=== PATIENT | female | born 1935 | race Caucasian/White ===

== ENCOUNTER 2017-09-20 13:02 | Inpatient (IN) ==
--- NOTE | 2017-09-20 13:16 | Emergency Department Report ---
Psych HPI - General Chief Complaint: Psychiatric Symptoms <Shabnam Merinon Q - 09/22/17 14:50> Stated Complaint: Diana eval <Shabnam Merinon Q - 09/22/17 14:50> Time Seen by Provider: 09/20/17 13:06 <Shabnam Merinon Q - 09/22/17 14:50> Source: old records reviewed, other (senior living staff) <Jovita Bone N 11/06 13:16> Mode of arrival: ambulatory <Jovita Bone N 09/20/17 13:16> Limitations: no limitations <Jovita Bone N 09/20/17 13:16> - History of Present Illness HPI Narrative: She presents to ER today from senior living for medical clearance for admission to [facility]. She has been having increased aggressive behaviors and agitation. Had been evaluated in ER a month ago for admission and had a UTI at that time. They did treat with antibiotics and held off on admission at that time. Per staff, she did have a UA done this morning that was negative. <LizandroJovita N 09/20/17 13:20> MD complaint: other (agitation and aggression) <LatriciapageJovita N 09/20/17 13:16 > Onset (ago): week(s) <LatriciapageJovita N 09/20/17 13:16> Duration: constant <Jovita Bone N 09/20/17 13:16> Prior Hospitalization: No <LatriciapageJovita N 09/20/17 13:16> Relieving factors: none <LizandroJovita N 09/20/17 13:16> Exacerbating factors: none <LizandroJovita Drea 09/20/17 13:16> Associated psychiatric symptoms: none <LatriciapageJovita N 09/20/17 13:16> Associated symptoms: denies other symptoms <LatriciapageJovita 09/20/17 13:16> Treatments prior to arrival: none <LatriciapageJovita N 09/20/17 13:16> - Related Data Home Medications Medication Instructions Recorded Confirmed Donepezil HCl [Aricept] 10 mg PO DAILY #0 tab 04/04/16 09/20/17 Cyanocobalamin (Vitamin B-12) 1,000 mcg PO DAILY 08/22/17 09/20/17 [Vitamin B-12] Memantine [Namenda] 5 mg PO BID 08/22/17 09/20/17 Sertraline [Zoloft] 50 mg PO DAILY 08/22/17 09/20/17 Cholecalciferol (Vitamin D3) 1,000 unit PO DAILY 09/20/17 09/20/17 [Vitamin D3] Quetiapine [Seroquel] 100 mg PO BID 09/20/17 09/20/17 Previous Rx's Medication Instructions Recorded Acetaminophen [Tylenol Extra 500 mg PO Q4H PRN #60 tab 11/11/15 Strength] <Margarito Merino Q - 09/22/17 14:50> Allergies Allergy/AdvReac Type Severity Reaction Status Date / Time No Known Drug Allergies Allergy Unknown Verified 09/20/17 13:34 <Margarito Merino Q - 09/22/17 14:50> Review of Systems Constitutional: Denies: fever, chills, weakness <Jovita Bone N 09/20/17 13: 20> Respiratory: Denies: cough <Jovita Bone 09/20/17 13:20> Gastrointestinal: Denies: nausea, vomiting, diarrhea <Jovita Bone 13:20> Integumentary: Denies: rash <Jovita Bone 09/20/17 13:20> Neurological: Denies: weakness <Jovita Bone 09/20/17 13:20> [facility] Patient Stated Medical History Dementia Yes Hypertension Yes Diabetes Mellitus Type 2 Yes Hx Incontinence Yes Other Yes: abnormal vaginal bleeding Osteoarthritis Yes Depression Yes Clinic Medical History Major neurocognitive disorder due to Alzheimer's disease, probable, with behavioral disturbance (Acute Medical) with behavioral disturbance Acute psychosis (Inactive Medical) <Margarito Merino Q - 09/22/17 14:50> - Social History Smoking status: Never smoker <Jovita Bone - 09/20/17 13:16> Physical Exam - Limitations Limitations: no limitations <Jovita Bone - 09/20/17 13:20> - General General appearance: alert, in no apparent distress <Jovita Bone - 09/20/17 13:20> - Normal Exams: ENMT:: No facial trauma, nasal exudates, pharyngeal erythema, or exudates are noted <[facility]ovita [facility] 09/20/17 13:20> Neck:: Full range of motion, without adenopathy, JVD, bruits or thyromegaly < LatriciaJovita [facility] 09/20/17 13:20> Chest/Respirations:: Clear all devi, with good airflow, and symmetry bilaterally <Jovita [facility] 09/20/17 13:20> Cardiovascular:: Regular rate and rhythm, without murmur or gallop, Pulses 2+ all extremities, capillary refill, <2 seconds all extremities <Jovita Bone 09/20/17 13:20> Abdomen:: Bowel sounds positive, soft, non-tender, non-distended, no hepatosplenomegaly, masses or bruits noted <Jovita [facility] 09/20/17 13:20> Lymphatic:: No lymphadenopathy, or lymphedema noted <LatriciaJovita [facility] 09/20/17 13:20> Neurological:: Patient is alert, and oriented <Jovita Bone [facility] 09/20/17 13:20> Psychiatric:: Patient exhibits, appropriate attention, emotion and affect < Jovita Bone [facility] 09/20/17 13:20> Course Vital Signs Temperature 97.6 F 09/20/17 13:05 Pulse Rate 75 09/20/17 13:05 Respiratory Rate 18 09/20/17 13:05 Blood Pressure 130/63 09/20/17 13:05 Pulse Oximetry 97 09/20/17 13:05 Temperature 97.6 F 09/22/17 08:00 Pulse Rate 84 09/22/17 08:00 Respiratory Rate 18 09/22/17 08:00 Blood Pressure 146/67 H 09/22/17 08:00 Pulse Oximetry 96 09/22/17 08:00 <Margarito Merino Q - 09/22/17 14:50> Vital Signs Temperature 97.6 F 09/20/17 13:05 Pulse Rate 75 09/20/17 13:05 Respiratory Rate 18 09/20/17 13:05 Blood Pressure 130/63 09/20/17 13:05 Pulse Oximetry 97 09/20/17 13:05 Temperature 97.6 F 09/22/17 08:00 Pulse Rate 84 09/22/17 08:00 Respiratory Rate 18 09/22/17 08:00 Blood Pressure 146/67 H 09/22/17 08:00 Pulse Oximetry 96 09/22/17 08:00 <Jovita Bone N - 09/20/17 13:20> Psych - MDM Narrative Medical decision making narrative: Patient medically clear, however does have a questionable enlarging chest mass. Primary medical physician was contracted by nurse practitioner, I did discuss with Consuelo Haynes, nurse practitioner for hospitalist service so they were aware on consult <Margarito Merino Q - 09/22/17 14:50> Did call and discuss finding so chest xray with Dr Merino for outpatient follow up if not done during admission. <Jovita Bone N - 09/20/17 23:09> - Differential Diagnosis Likely: acute psychosis, acute anxiety <LatriciapageHuberta N - 09/20/17 13:20> - Lab Data Attestation: I reviewed the patient's lab results. <Jovita Bone N - 09/20/17 14:19> Result diagrams: 09/22/17 07:53 09/20/17 13:34 <Margarito Merino Q - 09/22/17 14:50> Lab Results 09/20/17 09/20/17 09/20/17 Range/Units 13:32 13:32 13:34 WBC 6.2 (4.5-11.0) T/MM3 RBC 4.25 (4.00-5.20) M/MM3 Hgb 11.9 L (12-16) GM/DL Hct 39.1 (36-46) % MCV 92.0 (80-100) UM3 MCH 28.0 (26-34) UUG MCHC 30.4 L (31-37) GM/DL RDW Std Deviation 48.2 (36.9-50.2) FL Plt Count 175 (130-400) T/MM3 MPV 11.1 (9.4-12.4) UM3 Immature Gran % (Auto) 0.5 (0.0-0.5) % Neut % (Auto) 71.6 H (33-66) % Lymph % (Auto) 15.4 L (23-45) % [place] % (Auto) 8.3 (0-9.0) % Eos % (Auto) 3.9 (0-4) % Baso % (Auto) 0.3 (0-2) % Neut # (Auto) 4.4 (1.8-7.7) T/MM3 Lymph # (Auto) 1.0 (1-4.8) T/MM3 [place] # (Auto) 0.5 (0-0.8) T/MM3 Eos # (Auto) 0.2 (0-0.5) T/MM3 Baso # (Auto) 0.0 (0-0.2) T/MM3 Abs Immat Gran (auto) 0.03 (0.00-0.03) T/MM3 Turbidity (0-20) Sodium (134-144) MEQ/L Potassium (3.6-5) MEQ/L Chloride (98-107) MEQ/L Carbon Dioxide (22-30) MEQ/L Anion Gap (5-15) MEQ/L BUN (7-17) MG/DL Creatinine (0.7-1.2) MG/DL GFR Calculation BUN/Creatinine Ratio (6-26) RATIO Glucose (65-110) MG/DL Hemoglobin A1c 5.9 L (6.1-7.9) % Calculated Osmolality (261-280) MOSM/KG Calcium (8.4-10.2) MG/DL Total Bilirubin (0.20-1.30) MG/DL Icterus Index (0-7) AST (14-36) U/L ALT (9-52) U/L Alkaline Phosphatase (38-126) U/L Total Protein (6.3-8.2) G/DL Albumin (3.5-5.0) G/DL Globulin (2.4-3.6) G/DL Albumin/Globulin Ratio (1.1-2.2) RATIO Carcinoembryonic Ag 17.30 H (0-3.0) UG/L TSH 4.09 (0.47-4.68) MIU/L Specimen Hemolysis (0-25) 09/20/17 Range/Units 13:34 WBC (4.5-11.0) T/MM3 RBC (4.00-5.20) M/MM3 Hgb (12-16) GM/DL Hct (36-46) % MCV (80-100) UM3 MCH (26-34) UUG MCHC (31-37) GM/DL RDW Std Deviation (36.9-50.2) FL Plt Count (130-400) T/MM3 MPV (9.4-12.4) UM3 Immature Gran % (Auto) (0.0-0.5) % Neut % (Auto) (33-66) % Lymph % (Auto) (23-45) % [place] % (Auto) (0-9.0) % Eos % (Auto) (0-4) % Baso % (Auto) (0-2) % Neut # (Auto) (1.8-7.7) T/MM3 Lymph # (Auto) (1-4.8) T/MM3 [place] # (Auto) (0-0.8) T/MM3 Eos # (Auto) (0-0.5) T/MM3 Baso # (Auto) (0-0.2) T/MM3 Abs Immat Gran (auto) (0.00-0.03) T/MM3 Turbidity < 20 (0-20) Sodium 143 (134-144) MEQ/L Potassium 3.7 (3.6-5) MEQ/L Chloride 107 (98-107) MEQ/L Carbon Dioxide 26 (22-30) MEQ/L Anion Gap 10 (5-15) MEQ/L BUN 24.0 H (7-17) MG/DL Creatinine 1.0 (0.7-1.2) MG/DL GFR Calculation 53 BUN/Creatinine Ratio 24 (6-26) RATIO Glucose 166 H (65-110) MG/DL Hemoglobin A1c (6.1-7.9) % Calculated Osmolality 283 H (261-280) MOSM/KG Calcium 8.4 (8.4-10.2) MG/DL Total Bilirubin 0.30 (0.20-1.30) MG/DL Icterus Index < 2 (0-7) AST 18 (14-36) U/L ALT 25 (9-52) U/L Alkaline Phosphatase 180 H (38-126) U/L Total Protein 7.5 (6.3-8.2) G/DL Albumin 3.8 (3.5-5.0) G/DL Globulin 3.7 H (2.4-3.6) G/DL Albumin/Globulin Ratio 1.0 L (1.1-2.2) RATIO Carcinoembryonic Ag (0-3.0) UG/L TSH (0.47-4.68) MIU/L Specimen Hemolysis < 15 (0-25) <Margarito Merino Q - 09/22/17 14:50> Lab Results 09/20/17 09/20/17 09/20/17 Range/Units 13:32 13:32 13:34 WBC 6.2 (4.5-11.0) T/MM3 RBC 4.25 (4.00-5.20) M/MM3 Hgb 11.9 L (12-16) GM/DL Hct 39.1 (36-46) % MCV 92.0 (80-100) UM3 MCH 28.0 (26-34) UUG MCHC 30.4 L (31-37) GM/DL RDW Std Deviation 48.2 (36.9-50.2) FL Plt Count 175 (130-400) T/MM3 MPV 11.1 (9.4-12.4) UM3 Immature Gran % (Auto) 0.5 (0.0-0.5) % Neut % (Auto) 71.6 H (33-66) % Lymph % (Auto) 15.4 L (23-45) % [place] % (Auto) 8.3 (0-9.0) % Eos % (Auto) 3.9 (0-4) % Baso % (Auto) 0.3 (0-2) % Neut # (Auto) 4.4 (1.8-7.7) T/MM3 Lymph # (Auto) 1.0 (1-4.8) T/MM3 [place] # (Auto) 0.5 (0-0.8) T/MM3 Eos # (Auto) 0.2 (0-0.5) T/MM3 Baso # (Auto) 0.0 (0-0.2) T/MM3 Abs Immat Gran (auto) 0.03 (0.00-0.03) T/MM3 Turbidity (0-20) Sodium (134-144) MEQ/L Potassium (3.6-5) MEQ/L Chloride (98-107) MEQ/L Carbon Dioxide (22-30) MEQ/L Anion Gap (5-15) MEQ/L BUN (7-17) MG/DL Creatinine (0.7-1.2) MG/DL GFR Calculation BUN/Creatinine Ratio (6-26) RATIO Glucose (65-110) MG/DL Hemoglobin A1c 5.9 L (6.1-7.9) % Calculated Osmolality (261-280) MOSM/KG Calcium (8.4-10.2) MG/DL Total Bilirubin (0.20-1.30) MG/DL Icterus Index (0-7) AST (14-36) U/L ALT (9-52) U/L Alkaline Phosphatase (38-126) U/L Total Protein (6.3-8.2) G/DL Albumin (3.5-5.0) G/DL Globulin (2.4-3.6) G/DL Albumin/Globulin Ratio (1.1-2.2) RATIO Carcinoembryonic Ag 17.30 H (0-3.0) UG/L TSH 4.09 (0.47-4.68) MIU/L Specimen Hemolysis (0-25) 09/20/17 Range/Units 13:34 WBC (4.5-11.0) T/MM3 RBC (4.00-5.20) M/MM3 Hgb (12-16) GM/DL Hct (36-46) % MCV (80-100) UM3 MCH (26-34) UUG MCHC (31-37) GM/DL RDW Std Deviation (36.9-50.2) FL Plt Count (130-400) T/MM3 MPV (9.4-12.4) UM3 Immature Gran % (Auto) (0.0-0.5) % Neut % (Auto) (33-66) % Lymph % (Auto) (23-45) % [place] % (Auto) (0-9.0) % Eos % (Auto) (0-4) % Baso % (Auto) (0-2) % Neut # (Auto) (1.8-7.7) T/MM3 Lymph # (Auto) (1-4.8) T/MM3 [place] # (Auto) (0-0.8) T/MM3 Eos # (Auto) (0-0.5) T/MM3 Baso # (Auto) (0-0.2) T/MM3 Abs Immat Gran (auto) (0.00-0.03) T/MM3 Turbidity < 20 (0-20) Sodium 143 (134-144) MEQ/L Potassium 3.7 (3.6-5) MEQ/L Chloride 107 (98-107) MEQ/L Carbon Dioxide 26 (22-30) MEQ/L Anion Gap 10 (5-15) MEQ/L BUN 24.0 H (7-17) MG/DL Creatinine 1.0 (0.7-1.2) MG/DL GFR Calculation 53 BUN/Creatinine Ratio 24 (6-26) RATIO Glucose 166 H (65-110) MG/DL Hemoglobin A1c (6.1-7.9) % Calculated Osmolality 283 H (261-280) MOSM/KG Calcium 8.4 (8.4-10.2) MG/DL Total Bilirubin 0.30 (0.20-1.30) MG/DL Icterus Index < 2 (0-7) AST 18 (14-36) U/L ALT 25 (9-52) U/L Alkaline Phosphatase 180 H (38-126) U/L Total Protein 7.5 (6.3-8.2) G/DL Albumin 3.8 (3.5-5.0) G/DL Globulin 3.7 H (2.4-3.6) G/DL Albumin/Globulin Ratio 1.0 L (1.1-2.2) RATIO Carcinoembryonic Ag (0-3.0) UG/L TSH (0.47-4.68) MIU/L Specimen Hemolysis < 15 (0-25) <Jovita Bone - 09/20/17 13:20> - Radiology Data Attestation: I reviewed the patient's radiology results. <Jovita Bone - 11/06 14:19> Date of Exam: 09/20/17 Ordering Provider: Jovita Bone APRN Type of Exam(s): XR chest 1V Reason for Exam(s): confusion Indication: confusion PROCEDURE: XR chest 1V: Encounter: Initial Comparison: November 09, 2015 Findings: Increasing size of a left upper lobe mass, possibly measuring up to 5 cm in diameter. The previously noted right upper lobe pulmonary nodule is not well seen on today's exam. No pleural effusion or pneumothorax. Heart size and mediastinal contours are stable. Pulmonary vascularity is unremarkable. Impression: Enlarging left upper lobe lung mass suspicious for carcinoma. Chest CT is recommended if this has not been previously performed. . <Jovita [facility] 09/20/17 14:19> Disposition Clinical Impression: DEMENTIA WITH BEHAVIORS <Margarito Merino 09/22/17 14:50> Disposition: 64 To [facility] [place] <Margarito Merino 09/22/17 14:50> Condition: Stable <Margarito Merino [facility] 09/22/17 14:50> Instructions: <Margarito Merino [facility] 09/22/17 14:50> Prescriptions: No Action Donepezil HCl [Aricept] 10 mg PO DAILY #0 tab Cyanocobalamin (Vitamin B-12) [Vitamin B-12] 1,000 mcg PO DAILY Sertraline [Zoloft] 50 mg PO DAILY Cholecalciferol (Vitamin D3) [Vitamin D3] 1,000 unit PO DAILY Quetiapine [Seroquel] 100 mg PO BID Acetaminophen [Tylenol Extra Strength] 500 mg PO Q4H PRN #60 tab PRN Reason: PAIN Memantine [Namenda] 5 mg PO BID <Margarito Merino - 09/22/17 14:50> Referrals: Marci Merino MD [Family Provider] - <Margarito Merino [facility] 09/22/17 14 :50> Forms: <Margarito Merino [facility] 09/22/17 14:50> Time of Disposition: 14:30 <Jovita Bone 09/20/17 23:09> - Seen By: midlevel <Jovita Bone [facility] 09/20/17 23:09>
--- NOTE | 2017-09-20 14:06 | XRay Report ---
Indication: confusion PROCEDURE: XR chest 1V: Encounter: Initial Comparison: November 09, 2015 Findings: Increasing size of a left upper lobe mass, possibly measuring up to 5 cm in diameter. The previously noted right upper lobe pulmonary nodule is not well seen on today's exam. No pleural effusion or pneumothorax. Heart size and mediastinal contours are stable. Pulmonary vascularity is unremarkable. Impression: Enlarging left upper lobe lung mass suspicious for carcinoma. Chest CT is recommended if this has not been previously performed. .
[2017-09-20] MEDS ORDERED: HALOPERIDOL 5 MG/ML INJECTION IM PRN (14:38)
[2017-09-20] MEDS ORDERED: HALOPERIDOL 0.5 MG TABLET PO PRN (14:38)
[2017-09-20] MEDS ORDERED: LORazepam 0.5 MG TABLET PO PRN (14:38)
[2017-09-20 16:25] VITALS: BMI 31.1
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
[2017-09-20] MEDS: MEMANTINE 5 MG TABLET PO SCH (20:50)
[2017-09-20] MEDS: QUETIAPINE 50 MG TABLET PO SCH (20:50)
[2017-09-20] MEDS ORDERED: QUETIAPINE 100 MG TABLET PO SCH (21:00)
[2017-09-21] MEDS: CYANOCOBALAMIN (B-12) 500mcg TABLET PO SCH (09:19)
[2017-09-21] MEDS: SERTRALINE 50 MG TABLET PO SCH (09:19)
[2017-09-21] MEDS: MEMANTINE 5 MG TABLET PO SCH ×2 (09:19→20:11)
[2017-09-21] MEDS: QUETIAPINE 50 MG TABLET PO SCH ×2 (09:23→20:11)
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
[2017-09-21] MEDS ORDERED: ACETAMINOPHEN 500 MG TABLET PO PRN (12:05)
[2017-09-21] MEDS: SENNA + DOCUSATE TABLET PO SCH (20:11)
[2017-09-21] MEDS: DONEPEZIL 10 MG TABLET PO SCH (20:11)
[2017-09-22] MEDS: CYANOCOBALAMIN (B-12) 500mcg TABLET PO SCH ×2 (09:57→13:28)
[2017-09-22] MEDS: QUETIAPINE 50 MG TABLET PO SCH ×3 (09:58→20:20)
[2017-09-22] MEDS: SERTRALINE 50 MG TABLET PO SCH ×2 (09:58→13:29)
[2017-09-22] MEDS: MEMANTINE 5 MG TABLET PO SCH ×3 (09:58→20:20)
[2017-09-22] MEDS: SENNA + DOCUSATE TABLET PO SCH ×3 (09:58→20:20)
[2017-09-22] MEDS ORDERED: CEFTRIAXONE 1 G INJECTION IM ONE (10:12)
[2017-09-22] MEDS ORDERED: LIDOCAINE 1% (10mg/ml) 2mL INJ PF SDV ID ONE (10:32)
--- NOTE | 2017-09-22 10:47 | CT Scan Report ---
Indication: Confusion, possible malignancy PROCEDURE: CT head/brain wo con: Encounter: Initial Comparison: November 09, 2015 Technique: Axial CT images through the head were performed without contrast. Iterative Reconstruction dose reducing technique was utilized. FINDINGS: Generalized atrophy. The ventricles are of normal size, shape, and contour for the patient's age. Chronic appearing left caudate area of lacunar infarct. There are scattered areas of low attenuation in the white matter which most likely represent changes from chronic microvascular ischemia. The brainstem, cerebellum, and cerebral hemispheres otherwise have a normal morphology and CT attenuation. There is no evidence of midline displacement. No hemorrhage, signs of acute territorial stroke, mass effect, mass lesions, or edema is evident. The visualized portions of the skull base, midface, and calvarium demonstrate no acute findings. Hyperostosis frontalis interna. The paranasal sinuses are well aerated and free of significant disease. The tympanic and mastoid cavities appear normal. IMPRESSION: No acute intracranial abnormality or hemorrhage. .
--- NOTE | 2017-09-22 10:52 | CT Scan Report ---
Indication: Lung mass PROCEDURE: CT chest wo con: Encounter: Initial Comparison: Chest x-ray dated September 20, 2017 Technique: Axial CT images were performed through the chest without intravenous contrast. Coronal and sagittal two-dimensional reformats. Automated Exposure Control and Iterative Reconstruction dose reducing techniques were utilized. Findings: Spiculated 5.6 cm left upper lobe lung mass on axial image #14. Mild atelectasis in the lower lobes. No additional pulmonary nodules or masses. No pleural effusion or pneumothorax. The central airways are patent. No axillary adenopathy. No mediastinal adenopathy heart size is normal. No pericardial effusion. The upper abdomen shows no acute findings. Small hiatal hernia with a fat-containing posterior mediastinal defect as well. Bone windows show degenerative change and scoliosis in the spine without obvious lytic or blastic bony lesion. 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 Impression: Large irregular left upper lobe mass which remains a primary lung malignancy until proven otherwise. No definite evidence of metastatic disease in the chest. Due to its positioning a bronchoscopic biopsy would probably be the most advantageous route for obtaining a tissue diagnosis. .
--- NOTE | 2017-09-22 11:08 | Neuropsych Progress Note ---
[facility] Subjective Date: 09/22/17 - Sujective/Severity of Illness Medications: Acetaminophen (Tylenol) 500 mg PO Q5H PRN PRN Reason: Discomfort Cephalexin HCl (Keflex) 500 mg PO Q12HR [facility] Last Admin: 09/22/17 10:07 Dose: 500 mg Cholecalciferol (Vit. D-3) 1,000 unit PO DAILY [facility] Last Admin: 09/22/17 09:58 Dose: 1,000 unit Cyanocobalamin (Vit. B-12) 1,000 mcg PO DAILY [facility] Last Admin: 09/22/17 09:57 Dose: 1,000 mcg Donepezil HCl (Aricept) 10 mg PO HS [facility] Last Admin: 09/21/17 20:11 Dose: 10 mg Haloperidol (Haldol) 0.5 mg PO Q6H PRN PRN Reason: Extreme agitation Haloperidol Lactate (Haldol) 0.5 mg IM Q6H PRN PRN Reason: Extreme agitation Last Admin: 09/22/17 10:21 Dose: 0.5 mg Lorazepam (Ativan Inj) 0.5 mg IM Q6H PRN PRN Reason: Extreme agitation Lorazepam (Ativan) 0.5 mg PO Q6H PRN PRN Reason: Extreme agitation Last Admin: 09/21/17 09:21 Dose: 0.5 mg Magnesium Hydroxide (Mom) 30 ml PO DAILY PRN PRN Reason: Constipation /Stool softening Memantine (Namenda) 5 mg PO BID [facility] Last Admin: 09/22/17 09:58 Dose: 5 mg Quetiapine Fumarate (Seroquel) 50 mg PO BID [facility] Last Admin: 09/22/17 09:58 Dose: 50 mg Senna/Docusate Sodium (Senna Plus Tablet) 1 tab PO BID [facility] Last Admin: 09/22/17 09:58 Dose: 1 tab Sertraline HCl (Zoloft) 50 mg PO DAILY [facility] Last Admin: 09/22/17 09:58 Dose: 50 mg Subjective: Pt seen and chart examined. Nursing reports pt has been irritable and paranoid and agitated with staff. On face to face the pt is irritable. She states she does not want to take her meds because "I'm not sick". She states we are trying to take her money. Denies pain Start Time: 10:45 Stop Time: 11:00 Mental Status Exam Vitals: Last Vital Signs Temp 97.6 F 09/22/17 08:00 Pulse 84 09/22/17 08:00 Resp 18 09/22/17 08:00 BP 146/67 H 09/22/17 08:00 Pulse Ox 96 09/22/17 08:00 Height: 1.5 m Weight: 70.1 kg - Mental Status Exam Muscle Strength/Tone: Weak Dressing: Casual Grooming: Fair Attitude: Guarded Motor Activity: Retardation Eye Contact: Fair Speech: Slowed Volume: Soft Rhythm: Mumbled Orientation: Disoriented to time, Disoriented to place, Disoriented to situation , Oriented to person Mood: Neutral Rate of Thoughts: Delayed Thought Organization: [place] Associations: Loose-associations Abstract Reasoning: Poor abstract reasoning Thought Content: Normal Perception/Psychotic: Hx psychosis, not current Language: Naming Impaired Fund of Knowledge: Poor fund of knowledge Memory: Poor-immediate, Poor-recent Suicidal Ideation: Denies Homicidal Ideation: Denies Insight: Poor Judgement: Poor Impulse Control: Poor - Laboratory Result Diagrams: 09/22/17 07:53 09/20/17 13:34 Laboratory Results - last 24 hr 09/22/17 09/22/17 06:43 07:53 WBC 6.1 RBC 4.36 Hgb 12.0 Hct 39.9 MCV 91.5 MCH 27.5 MCHC 30.1 L RDW Std Deviation 48.4 Plt Count 200 MPV 11.5 Immature Gran % (Auto) 0.5 Neut % (Auto) 70.4 H Lymph % (Auto) 15.5 L [place] % (Auto) 7.9 Eos % (Auto) 5.4 H Baso % (Auto) 0.3 Neut # (Auto) 4.3 Lymph # (Auto) 1.0 [place] # (Auto) 0.5 Eos # (Auto) 0.3 Baso # (Auto) 0.0 Abs Immat Gran (auto) 0.03 Glucometer 88 Assessment and Plan (1) Major neurocognitive disorder due to Alzheimer's disease, probable, with behavioral disturbance Problem details: with behavioral disturbance Current visit: Yes Status: Acute Hospital Course Summary Disclaimer: The visit summary below is not to be considered part of the above Progress Note. Hospital Course: 09/21/17 10:23 Some paranoia but not distressing to the pt. Continue current care 09/21/17 12:03 09/21/17 Admit to [facility] under the care of the psychiatry team. Continue safe/supportive environment. Possible recurrent UTI- await cx. (may need to R/O fistula given hx of intra- abdominal infection) Lung mass needs to be evaluated- order CT w/o contrast for now given age. CT head as well given concern for malignancy. (Don't think she would cooperate for MRI) Add laxatives due to constipation. Monitor HTN and DM2- daily accu checks. No home meds are recorded for those problems. Consult wound clinic to help with chronic wound management. D/W RN today. Full code-may need to discuss code status depending on findings. 09/21/17 12:04 Assessment: Dementia Behavioral changes with hallucinations Lung mass, concern for malignancy HTN DM2 Constipation H/O Abnormal vaginal bleeding Recurrent UTI Colostomy Chronic vascular insufficiency wounds. 09/22/17 11:07 Irritable and agitated today. Continue current care
--- NOTE | 2017-09-22 15:29 | Progress Note ---
- Date 09/22/17 Subjective: Sitting up in bed, having a conversation. There is no one visible in the room but she tells me she is meeting with several important people and would prefer I come back at a time that is more convenient. She denies any complaints currently. No further ROS obtainable at this time. Objective Vital signs: Temperature 97.6 F 09/22/17 08:00 Pulse Rate 84 09/22/17 08:00 Respiratory Rate 18 09/22/17 08:00 Blood Pressure 146/67 H 09/22/17 08:00 Pulse Oximetry 96 09/22/17 08:00 Height/Weight/BMI: Height 1.5 m Weight 70.1 kg Body Mass Index 31.1 - Constitutional Present: no acute distress, well nourished, well developed, disheveled - Routine HEENT Exam Head: Present: normocephalic, atraumatic Eye: Present: EOMI, PERRL ENT: Present: mucous membranes moist, oropharynx clear - Routine Respiratory Exam Absent: accessory muscle use Comments: nonlabored breathing, symmetrical chest rise - Routine Cardiovascular Exam Present: RRR. Absent: murmur - Routine Abdominal Exam Present: soft, non distended, non tender - Routine Extremities Exam Present: pulses intact, normal capillary refill. Absent: edema - Routine Skin Exam Present: dry, warm. Absent: rash - Routine Neurological Exam Present: alert, altered mental status - Routine Psychiatric Exam Present: auditory hallucinations, visual hallucinations, anxious Results - Labs CBC & Chem 7: 09/22/17 07:53 09/20/17 13:34 Labs: Date of Exam: 09/21/17 Ordering Provider: Radha Smith APRN Type of Exam(s): CT chest wo con Reason for Exam(s): Lung mass Indication: Lung mass PROCEDURE: CT chest wo con: Encounter: Initial Comparison: Chest x-ray dated September 20, 2017 Technique: Axial CT images were performed through the chest without intravenous contrast. Coronal and sagittal two-dimensional reformats. Automated Exposure Control and Iterative Reconstruction dose reducing techniques were utilized. Findings: Spiculated 5.6 cm left upper lobe lung mass on axial image #14. Mild atelectasis in the lower lobes. No additional pulmonary nodules or masses. No pleural effusion or pneumothorax. The central airways are patent. No axillary adenopathy. No mediastinal adenopathy heart size is normal. No pericardial effusion. The upper abdomen shows no acute findings. Small hiatal hernia with a fat-containing posterior mediastinal defect as well. Bone windows show degenerative change and scoliosis in the spine without obvious lytic or blastic bony lesion. 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 Impression: Large irregular left upper lobe mass which remains a primary lung malignancy until proven otherwise. No definite evidence of metastatic disease in the chest. Due to its positioning a bronchoscopic biopsy would probably be the most advantageous route for obtaining a tissue diagnosis. Date of Exam: 09/21/17 Ordering Provider: Radha Smith APRN Type of Exam(s): CT head/brain wo con Reason for Exam(s): Confusion, possible malignancy Indication: Confusion, possible malignancy PROCEDURE: CT head/brain wo con: Encounter: Initial Comparison: November 09, 2015 Technique: Axial CT images through the head were performed without contrast. Iterative Reconstruction dose reducing technique was utilized. FINDINGS: Generalized atrophy. The ventricles are of normal size, shape, and contour for the patient's age. Chronic appearing left caudate area of lacunar infarct. There are scattered areas of low attenuation in the white matter which most likely represent changes from chronic microvascular ischemia. The brainstem, cerebellum, and cerebral hemispheres otherwise have a normal morphology and CT attenuation. There is no evidence of midline displacement. No hemorrhage, signs of acute territorial stroke, mass effect, mass lesions, or edema is evident. The visualized portions of the skull base, midface, and calvarium demonstrate no acute findings. Hyperostosis frontalis interna. The paranasal sinuses are well aerated and free of significant disease. The tympanic and mastoid cavities appear normal. IMPRESSION: No acute intracranial abnormality or hemorrhage. Microbiology Results: Microbiology 09/21/17 09:23 Urine, Voided (Cc/notcc) Urine Culture - Preliminary No Growth After 1 Day - Imaging and Cardiology CT scan - chest Status: image reviewed by me Assessment and Plan (1) Major neurocognitive disorder due to Alzheimer's disease, probable, with behavioral disturbance Problem details: with behavioral disturbance Current visit: Yes Status: Acute Assessment and Plan: Assessment: Dementia Behavioral changes with hallucinations (visual, auditory) Lung mass, concern for malignancy with CT chest demonstrating > 5 cm spiculated mass --> per radiology, bronchoscopy likely the most appropriate avenue for biopsy --> Discussed with her niece and DPOA today (May Powers [phone]) who agrees that she would want further investigation HTN DM2 Constipation H/O Abnormal vaginal bleeding Recurrent UTI Colostomy Chronic vascular insufficiency wounds Complicated UTI, urine culture pending with NGTD from 09/21 Plan: Consult pulmonology for further evaluation and possible bronchoscopy/biopsy this week to evaluate lung mass Start keflex 500 mg po BID empirically pending urine culture results given history of recurrent UTI, UA nitrite + and bacteriuria Continue safe/supportive environment Continue laxatives for constipation Monitor HTN and DM2- daily accu checks. No home meds are recorded for those problems and stable currently Consult wound clinic to help with chronic wound management (eval pending) Discussed with DPOA May Powers (niece), would like to proceed with pulm evaluation and biopsy if able. Discussed with RN at bedside. Continue full code status and supportive care. Hospital Course Summary Disclaimer: The visit summary below is not to be considered part of the above Progress Note. Hospital Course: 09/21/17 10:23 Some paranoia but not distressing to the pt. Continue current care 09/21/17 12:03 09/21/17 Admit to [facility] under the care of the psychiatry team. Continue safe/supportive environment. Possible recurrent UTI- await cx. (may need to R/O fistula given hx of intra- abdominal infection) Lung mass needs to be evaluated- order CT w/o contrast for now given age. CT head as well given concern for malignancy. (Don't think she would cooperate for MRI) Add laxatives due to constipation. Monitor HTN and DM2- daily accu checks. No home meds are recorded for those problems. Consult wound clinic to help with chronic wound management. D/W RN today. Full code-may need to discuss code status depending on findings. 09/21/17 12:04 Assessment: Dementia Behavioral changes with hallucinations Lung mass, concern for malignancy HTN DM2 Constipation H/O Abnormal vaginal bleeding Recurrent UTI Colostomy Chronic vascular insufficiency wounds. 09/22/17 11:07 Psych Irritable and agitated today. Continue current care 09/22/17 15:41 [place] Consult pulmonology for further evaluation and possible bronchoscopy/biopsy this week to evaluate lung mass Start keflex 500 mg po BID empirically pending urine culture results given history of recurrent UTI, UA nitrite + and bacteriuria Continue safe/supportive environment Continue laxatives for constipation Monitor HTN and DM2- daily accu checks. No home meds are recorded for those problems and stable currently Consult wound clinic to help with chronic wound management (eval pending)
[2017-09-22] MEDS: DONEPEZIL 10 MG TABLET PO SCH (20:19)
--- NOTE | 2017-09-23 09:57 | Pulmonology Consult Note ---
<Mary Hoffmann - Last Filed: 09/23/17 09:47> History of Present Illness Consult date: 09/23/17 Reason for consult: lung mass (ZAN) History of present illness: Ms. Kong, who goes by "Carina" is an 82 year old female who was brought in from her intermediate after having increased confusion and behavioral changes. She does have a PMH of dementia, and is admitted under psych care. She is currently only orientated to self, and has been having auditory and visual hallucinations since admit, which increases with personal cares per nursing report. Nursing has not noticed any cough, SOA, or respiratory distress from patient since admit. Upon admit she was found to have a reoccurring UTI. A CXR on 09/20/17 noted a mass to the left upper lobe. A CT of the chest found an irregular 5.6cm mass in the left upper lobe. CT of the head was negative. On previous review of CXR, she had bilateral upper lobe nodules in October 2015 per report. Unsure if further follow up was completed. Primary spoke with patients niece, May Powers who is her medical DPOA who wishes to have the mass biopsied. Review of Systems ROS unobtainable: due to mental status PFS Patient Stated Medical History Dementia Yes Hypertension Yes Diabetes Mellitus Type 2 Yes: diet controlled Hx Incontinence Yes Other Yes: abnormal vaginal bleeding Osteoarthritis Yes Depression Yes Clinic Medical History Major neurocognitive disorder due to Alzheimer's disease, probable, with behavioral disturbance (Acute Medical) with behavioral disturbance Acute psychosis (Inactive Medical) Surgical History: Bowel resection due to intra-abdominal infection. Colostomy - Social History Smoking status: Never smoker Housing: intermediate Current occupational status: retired Does patient use chewing tobacco?: No Current residence: Shelter Medications Home Medications Medication Instructions Recorded Confirmed Type Donepezil HCl [Aricept] 10 mg PO DAILY #0 tab 04/04/16 09/20/17 History Cyanocobalamin (Vitamin B-12) 1,000 mcg PO DAILY 08/22/17 09/20/17 History [Vitamin B-12] Memantine [Namenda] 5 mg PO BID 08/22/17 09/20/17 History Sertraline [Zoloft] 50 mg PO DAILY 08/22/17 09/20/17 History Cholecalciferol (Vitamin D3) 1,000 unit PO DAILY 09/20/17 09/20/17 History [Vitamin D3] Quetiapine [Seroquel] 100 mg PO BID 09/20/17 09/20/17 History Allergies Allergy/AdvReac Type Severity Reaction Status Date / Time No Known Drug Allergies Allergy Unknown Verified 09/20/17 13:34 Exam Vital signs: Temperature 97.6 F 09/22/17 20:09 Pulse Rate 79 09/22/17 20:09 Respiratory Rate 20 09/22/17 20:09 Blood Pressure 123/62 09/22/17 20:09 Pulse Oximetry 95 09/22/17 20:09 - Constitutional no acute distress, well nourished, well developed, cooperative - Routine HEENT Exam Head: Present: normocephalic, atraumatic Eye: Present: EOMI ENT: Present: mucous membranes dry - Routine Neck Exam Present: supple, full ROM, trachea midline - Routine Respiratory Exam Present: CTA bilaterally - Routine Cardiovascular Exam Present: RRR, S1, S2, no murmur - Routine Abdominal Exam Present: normoactive bowel sounds, non distended, non tender Comments: colostomy - Routine Extremities Exam Present: no edema, non tender, normal capillary refill - Routine Skin Exam Present: dry, warm, wounds Comments: bilateral feet - Routine Neurological Exam Present: alert, CN II-XII intact, altered mental status, normal tone - Routine Psychiatric Exam Present: auditory hallucinations, visual hallucinations, cooperative, paranoid Results - Laboratory Findings CBC and BMP: 09/22/17 07:53 09/20/17 13:34 Abnormal lab findings: Abnormal Labs 09/21/17 09/22/17 09:23 07:53 MCHC 30.1 L Neut % (Auto) 70.4 H Lymph % (Auto) 15.5 L Eos % (Auto) 5.4 H Ur Specific [place] 1.010 L Urine Nitrate Positive A Ur Leukocyte Esterase 2+ A Urine Bacteria 4+ H - Diagnostic Findings Chest x-ray: image reviewed CT scan - chest: image reviewed (as per HPI) Assessment and Plan - Assessment and Plan ZAN lung mass, 5.6cm Dementia-per psych management UTI- on Keflex per primary Plan: Patient with ZAN 5.6cm mass. Likely cancerous, would need a bronch with bx to confirm. My concern is she is not ambulatory and is WC bound. She has severe dementia. I question how much we are wanting to do to this patient for treatment or dx d/t her co-morbidities. Tried to call May YLLE without an answer. Will try to contact this afternoon. Continues with both visual and auditory hallucinations related to her . Continue psych meds per psych. Currently on Keflex for UTI, afebrile, WBC normal, continue to follow per primary. - Time Spent With Patient Total time spent is greater than 50% in coordination of care (as documented) at patient's floor/unit and/or counseling patient: less than 15 minutes <Claudy Forrester - Last Filed: 09/24/17 13:04> [facility] Patient Stated Medical History Dementia Yes Hypertension Yes Diabetes Mellitus Type 2 Yes: diet controlled Hx Incontinence Yes Other Yes: abnormal vaginal bleeding Osteoarthritis Yes Depression Yes Clinic Medical History Major neurocognitive disorder due to Alzheimer's disease, probable, with behavioral disturbance (Acute Medical) with behavioral disturbance May have vascular component as well. Lung mass (Acute Medical) Hypertension (Acute Medical) Type 2 diabetes mellitus (Acute Medical) UTI (urinary tract infection) (Acute Medical) Acute psychosis (Inactive Medical) Exam Vital signs: Temperature 98.3 F 09/23/17 22:07 Pulse Rate 79 09/23/17 22:07 Respiratory Rate 20 09/23/17 22:07 Blood Pressure 122/67 09/23/17 22:07 Pulse Oximetry 96 09/23/17 22:07 Results - Laboratory Findings CBC and BMP: 09/22/17 07:53 09/20/17 13:34 Abnormal lab findings: Abnormal Labs 09/21/17 09/22/17 09/24/17 09:23 07:53 06:57 MCHC 30.1 L Neut % (Auto) 70.4 H Lymph % (Auto) 15.5 L Eos % (Auto) 5.4 H Triglycerides 178 H VLDL Cholesterol 35.6 H HDL Cholesterol 36 L Cholesterol/HDL Ratio 4.3 H Ur Specific [place] 1.010 L Urine Nitrate Positive A Ur Leukocyte Esterase 2+ A Urine Bacteria 4+ H Assessment and Plan (1) Abnormal finding on lung imaging Status: Acute Current Visit: Yes (2) Lung mass Status: Acute Assessment and plan: Lung Mass, ZAN. This extends proximally into the ZAN bronchus and I believe it is amenable to bronchoscopic sampling. I would suggest fiberoptic bronchoscopy under anesthesia to rule out bronchogenic carcinoma, which seems most likely at this point. Current Visit: Yes - Time Spent With Patient Total time spent is greater than 50% in coordination of care (as documented) at patient's floor/unit and/or counseling patient:
[2017-09-23] MEDS: MEMANTINE 5 MG TABLET PO SCH ×2 (10:59→20:48)
[2017-09-23] MEDS: SENNA + DOCUSATE TABLET PO SCH ×3 (10:59→21:00)
[2017-09-23] MEDS: SERTRALINE 50 MG TABLET PO SCH (10:59)
[2017-09-23] MEDS: CYANOCOBALAMIN (B-12) 500mcg TABLET PO SCH (10:59)
[2017-09-23] MEDS: QUETIAPINE 50 MG TABLET PO SCH ×3 (11:00→20:51)
--- NOTE | 2017-09-23 11:46 | Progress Note ---
<Carol Mobley V - Last Filed: 09/23/17 11:41> - Date 09/23/17 Subjective: Mrs Kong is seen this morning. She is acutely talking with her (who is not present) and arguing with his regarding his new marriage. She reports that she is angry at him for leaving her for another woman. On examination she denies having any pain or feeling short of breath. Denies abdominal pain or nausea. Objective Vital signs: Temperature 98.5 F 09/23/17 08:00 Pulse Rate 104 H 09/23/17 08:00 Respiratory Rate 18 09/23/17 08:00 Blood Pressure 120/65 09/23/17 08:00 Pulse Oximetry 96 09/23/17 08:00 Height/Weight/BMI: Height 1.5 m Weight 70.1 kg Body Mass Index 31.1 - Constitutional Present: no acute distress, well nourished, well developed - Routine HEENT Exam Eye: Present: EOMI ENT: Present: mucous membranes moist, dentition normal - Routine Respiratory Exam Present: CTA bilaterally. Absent: wheezes - Routine Cardiovascular Exam Present: RRR, S1, S2. Absent: murmur - Routine Abdominal Exam Present: soft, normoactive bowel sounds, non distended. Absent: tenderness - Routine Extremities Exam Present: no edema - Routine Skin Exam Present: intact, dry, warm - Routine Neurological Exam Present: alert, CN II-XII intact, moving all extremities - Routine Lymphatic Exam Lymphatic: Absent: adenopathy - Routine Psychiatric Exam Present: auditory hallucinations, visual hallucinations, cooperative Results - Labs CBC & Chem 7: 09/22/17 07:53 09/20/17 13:34 Microbiology Results: Microbiology 09/21/17 09:23 Urine, Voided (Cc/notcc) Urine Culture - Preliminary No Growth After 1 Day Assessment and Plan (1) Major neurocognitive disorder due to Alzheimer's disease, probable, with behavioral disturbance Problem details: with behavioral disturbance Current visit: Yes Status: Acute Assessment and Plan: Assessment: Dementia Behavioral changes with hallucinations (visual, auditory) Lung mass, concern for malignancy with CT chest demonstrating > 5 cm spiculated mass --> per radiology, bronchoscopy likely the most appropriate avenue for biopsy --> Discussed with her niece and DPOA today (May Powers, ) who agrees that she would want further investigation HTN DM2 Constipation H/O Abnormal vaginal bleeding Recurrent UTI Colostomy Chronic vascular insufficiency wounds Complicated UTI, urine culture pending with NGTD from 09/21 Plan: Consulted pulmonology for further evaluation of probable malignant lung mass. Recommended by CM to complete treatment course of [facility]. Then will plan for outpatient workup and Bronchoscopy with Dr Forrester. Could consider obtaining CT brain with contrast to rule out mets. Will discuss with DPOA. Continues on Keflex for Pyuria- Culture revels Coag negative Staph. Awaiting sensitivity Monitor HTN and DM2- Diet control. Overall stable Attempted to nick DPOA May Powers (niece), to discuss plan of care. Will call later in the day Hospital Course Summary Disclaimer: The visit summary below is not to be considered part of the above Progress Note. Hospital Course: 09/21/17 10:23 Some paranoia but not distressing to the pt. Continue current care 09/21/17 12:03 09/21/17 Admit to [facility] under the care of the psychiatry team. Continue safe/supportive environment. Possible recurrent UTI- await cx. (may need to R/O fistula given hx of intra- abdominal infection) Lung mass needs to be evaluated- order CT w/o contrast for now given age. CT head as well given concern for malignancy. (Don't think she would cooperate for MRI) Add laxatives due to constipation. Monitor HTN and DM2- daily accu checks. No home meds are recorded for those problems. Consult wound clinic to help with chronic wound management. D/W RN today. Full code-may need to discuss code status depending on findings. 09/21/17 12:04 Assessment: Dementia Behavioral changes with hallucinations Lung mass, concern for malignancy HTN DM2 Constipation H/O Abnormal vaginal bleeding Recurrent UTI Colostomy Chronic vascular insufficiency wounds. 09/22/17 11:07 Psych Irritable and agitated today. Continue current care 09/22/17 15:41 [place] Consult pulmonology for further evaluation and possible bronchoscopy/biopsy this week to evaluate lung mass Start keflex 500 mg po BID empirically pending urine culture results given history of recurrent UTI, UA nitrite + and bacteriuria Continue safe/supportive environment Continue laxatives for constipation Monitor HTN and DM2- daily accu checks. No home meds are recorded for those problems and stable currently Consult wound clinic to help with chronic wound management (eval pending) 09/23/17 Plan Consulted pulmonology for further evaluation of probable malignant lung mass. Recommended by CM to complete treatment course of [facility]. Then will plan for outpatient workup and Bronchoscopy with Dr Forrester. Could consider obtaining CT brain with contrast to rule out mets. Will discuss with DPOA. Continues on Keflex for Pyuria- Culture revels Coag negative Staph. Awaiting sensitivity Monitor HTN and DM2- Diet control. Overall stable Attempted to nick DPOA May Powers (niece), to discuss plan of care. Will call later in the day <IvanZehra L - Last Filed: 09/23/17 20:28> - Date 09/23/17 Results - Labs CBC & Chem 7: 09/22/17 07:53 09/20/17 13:34 Microbiology Results: Microbiology 09/21/17 09:23 Urine, Voided (Cc/notcc) Urine Culture - Preliminary Coag negative Staphylococcus Streptococcus viridans group Assessment and Plan (1) 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 Current visit: Yes Status: Acute (2) Lung mass Current visit: Yes Status: Acute Assessment and Plan: I have independently evaluated and examined this patient. I reviewed the chart, the patient's history, and the ELECTROPHYSIOLOGY TECH/PA's documented findings as above. We discussed and formulated the assessment and plan as above with additions as below: Mrs. Kong was seen this evening while left lower extremity wound was being dressed and feet cleaned. She has extensive debris buildup between the toes. Patient denies dyspnea or hemoptysis. Respirations are nonlabored, anterior breath sounds clear. Bilateral bunions/hammertoes, several small calluses present. 3-4 cm ulceration just above left lateral malleolus. I would favor proceeding with contrast CT brain to exclude metastatic disease not evident on noncontrast study that may contribute to current hallucinations. Remainder of workup for lung cancer can be pursued as an outpatient when psychiatric symptoms subside. Plans discussed with pulmonary service and Dr. Childers. Noncontrast CT head reviewed by myself as well as lung CT. Blood sugars stable. Hospital Course Summary Disclaimer: The visit summary below is not to be considered part of the above Progress Note.
--- NOTE | 2017-09-23 13:52 | Neuropsych Progress Note ---
[facility] Subjective Date: 09/23/17 - Sujective/Severity of Illness Medications: Acetaminophen (Tylenol) 500 mg PO Q5H PRN PRN Reason: Discomfort Cephalexin HCl (Keflex) 500 mg PO Q12HR [facility] Last Admin: 09/23/17 10:59 Dose: 500 mg Cholecalciferol (Vit. D-3) 1,000 unit PO DAILY [facility] Last Admin: 09/23/17 10:59 Dose: 1,000 unit Cyanocobalamin (Vit. B-12) 1,000 mcg PO DAILY [facility] Last Admin: 09/23/17 10:59 Dose: 1,000 mcg Donepezil HCl (Aricept) 10 mg PO HS [facility] Last Admin: 09/22/17 20:19 Dose: 10 mg Haloperidol (Haldol) 0.5 mg PO Q6H PRN PRN Reason: Extreme agitation Haloperidol Lactate (Haldol) 0.5 mg IM Q6H PRN PRN Reason: Extreme agitation Last Admin: 09/22/17 10:21 Dose: 0.5 mg Lorazepam (Ativan Inj) 0.5 mg IM Q6H PRN PRN Reason: Extreme agitation Last Admin: 09/23/17 01:50 Dose: 0.5 mg Lorazepam (Ativan) 0.5 mg PO Q6H PRN PRN Reason: Extreme agitation Last Admin: 09/21/17 09:21 Dose: 0.5 mg Magnesium Hydroxide (Mom) 30 ml PO DAILY PRN PRN Reason: Constipation /Stool softening Memantine (Namenda) 5 mg PO BID [facility] Last Admin: 09/23/17 10:59 Dose: 5 mg Quetiapine Fumarate (Seroquel) 50 mg PO BID [facility] Last Admin: 09/23/17 11:00 Dose: 50 mg Senna/Docusate Sodium (Senna Plus Tablet) 1 tab PO BID [facility] Last Admin: 09/23/17 10:59 Dose: 1 tab Sertraline HCl (Zoloft) 50 mg PO DAILY [facility] Last Admin: 09/23/17 10:59 Dose: 50 mg Subjective: Patient seen and chart reviewed. Case discussed with treatment team. On interview, patient is calm and cooperative but continues to be quite delusional and hallucinating frequently per staff report. She is only mildly upset by her belief that her is being unfaithful towards her. Patient denies any SI or HI. Patient denies any adverse side effects related to psychotropic medications. Nursing staff report patient has had 2 outbursts of agitation, both involving cares. Patient slept well overnight. VSS. Patient is eating well. Psychotropic PRNs required in the past 24 hours: none. Lung mass was found and hospitalist has been determined it can be worked up on an outpatient basis; will need biopsy after discharge. 09/21/[address]: Generalized atrophy. The ventricles are of normal size, shape, and contour for the patient's age. Chronic appearing left caudate area of lacunar infarct. There are scattered areas of low attenuation in the white matter which most likely represent changes from chronic microvascular ischemia. The brainstem, cerebellum, and cerebral hemispheres otherwise have a normal morphology and CT attenuation. There is no evidence of midline displacement. No hemorrhage, signs of acute territorial stroke, mass effect, mass lesions, or edema is evident. The visualized portions of the skull base, midface, and calvarium demonstrate no acute findings. Hyperostosis frontalis interna. The paranasal sinuses are well aerated and free of significant disease. The tympanic and mastoid cavities appear normal. IMPRESSION: No acute intracranial abnormality or hemorrhage. Start Time: 10:10 Stop Time: 10:30 Mental Status Exam Vitals: Last Vital Signs Temp 98.5 F 09/23/17 08:00 Pulse 104 H 09/23/17 08:00 Resp 18 09/23/17 08:00 BP 120/65 09/23/17 08:00 Pulse Ox 96 09/23/17 08:00 Height: 1.5 m Weight: 70.1 kg - Mental Status Exam Muscle Strength/Tone: Weak Dressing: Casual Grooming: Fair Attitude: Cooperative Motor Activity: Retardation Eye Contact: Fair Speech: Slowed Volume: Soft Rhythm: Mumbled Orientation: Disoriented to time, Disoriented to place, Disoriented to situation , Oriented to person Mood: Neutral (affect calm during interview) Rate of Thoughts: Delayed Thought Organization: [place] Associations: Loose-associations Abstract Reasoning: Poor abstract reasoning Thought Content: Delusions Perception/Psychotic: Perception Normal Current Hallucinations: Visual, Auditory Language: Naming Impaired Fund of Knowledge: Poor fund of knowledge Memory: Poor-immediate, Poor-recent Suicidal Ideation: Denies Homicidal Ideation: Denies Insight: Poor Judgement: Poor Impulse Control: Poor - Laboratory Result Diagrams: 12/03/17 07:53 09/20/17 13:34 Laboratory Results - last 24 hr 09/23/17 05:19 Glucometer 109 Assessment and Plan (1) 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 Current visit: Yes Status: Acute (2) Lung mass Current visit: Yes Status: Acute (3) Hypertension Current visit: Yes Status: Acute (4) Type 2 diabetes mellitus Current visit: Yes Status: Acute (5) UTI (urinary tract infection) Current visit: Yes Status: Acute Hospital Course Summary Disclaimer: The visit summary below is not to be considered part of the above Progress Note. Hospital Course: 09/21/17 10:23 Some paranoia but not distressing to the pt. Continue current care 09/21/17 12:03 09/21/17 Admit to [facility] under the care of the psychiatry team. Continue safe/supportive environment. Possible recurrent UTI- await cx. (may need to R/O fistula given hx of intra- abdominal infection) Lung mass needs to be evaluated- order CT w/o contrast for now given age. CT head as well given concern for malignancy. (Don't think she would cooperate for MRI) Add laxatives due to constipation. Monitor HTN and DM2- daily accu checks. No home meds are recorded for those problems. Consult wound clinic to help with chronic wound management. D/W RN today. Full code-may need to discuss code status depending on findings. 09/21/17 12:04 Assessment: Dementia Behavioral changes with hallucinations Lung mass, concern for malignancy HTN DM2 Constipation H/O Abnormal vaginal bleeding Recurrent UTI Colostomy Chronic vascular insufficiency wounds. 09/22/17 11:07 Psych Irritable and agitated today. Continue current care 09/22/17 15:41 [place] Consult pulmonology for further evaluation and possible bronchoscopy/biopsy this week to evaluate lung mass Start keflex 500 mg po BID empirically pending urine culture results given history of recurrent UTI, UA nitrite + and bacteriuria Continue safe/supportive environment Continue laxatives for constipation Monitor HTN and DM2- daily accu checks. No home meds are recorded for those problems and stable currently Consult wound clinic to help with chronic wound management (eval pending) 09/23/17 Plan Consulted pulmonology for further evaluation of probable malignant lung mass. Recommended by CM to complete treatment course of [facility]. Then will plan for outpatient workup and Bronchoscopy with Dr Forrester. Could consider obtaining CT brain with contrast to rule out mets. Will discuss with DPOA. Continues on Keflex for Pyuria- Culture revels Coag negative Staph. Awaiting sensitivity Monitor HTN and DM2- Diet control. Overall stable Attempted to nick DPOA May Powers (niece), to discuss plan of care. Will call later in the day 09/23/17 Psych: Discussed care with hospitalist and pulmonology - recommended biopsy of lung on outpatient basis after discharge from this unit. Currently on Keflex for UTI, still hallucinating frequently though behaviors have been minimal. Will increase HS Seroquel to 75mg PO q HS.
--- NOTE | 2017-09-23 16:17 | General Surgery Consult Note ---
Consult date: 09/23/17 Attending Physician: Philip Velarde MD Reason for consult: wound care [facility] Patient Stated Medical History Dementia Yes Hypertension Yes Diabetes Mellitus Type 2 Yes: diet controlled Hx Incontinence Yes Other Yes: abnormal vaginal bleeding Osteoarthritis Yes Depression Yes Clinic Medical History Major neurocognitive disorder due to Alzheimer's disease, probable, with behavioral disturbance (Acute Medical) with behavioral disturbance May have vascular component as well. Lung mass (Acute Medical) Hypertension (Acute Medical) Type 2 diabetes mellitus (Acute Medical) UTI (urinary tract infection) (Acute Medical) Acute psychosis (Inactive Medical) Surgical History: Sigmoid resection with end colostomy due to reptured diverticulitis. Sequential dialataion of colostomy stoma 02-10-2009 Family History: Father - dementia, froze to age 88 Brother paraplegic Brother DM Sister -DM - Social History Smoking status: Never smoker Does patient use chewing tobacco?: No Current residence: [place] Medications Home Medications Medication Instructions Recorded Confirmed Type Donepezil HCl [Aricept] 10 mg PO DAILY #0 tab 04/04/16 09/20/17 History Cyanocobalamin (Vitamin B-12) 1,000 mcg PO DAILY 08/22/17 09/20/17 History [Vitamin B-12] Memantine [Namenda] 5 mg PO BID 08/22/17 09/20/17 History Sertraline [Zoloft] 50 mg PO DAILY 08/22/17 09/20/17 History Cholecalciferol (Vitamin D3) 1,000 unit PO DAILY 09/20/17 09/20/17 History [Vitamin D3] Quetiapine [Seroquel] 100 mg PO BID 09/20/17 09/20/17 History Allergies Allergy/AdvReac Type Severity Reaction Status Date / Time No Known Drug Allergies Allergy Unknown Verified 09/20/17 13:34 Review of Systems 10-point ROS: negative except for HPI and the following: - Eyes/Ears/Nose/Throat Ear Nose Throat: Present: loose/chipped/cracked teeth - Cardiovascular Cardiovascular: Present: irregular heart beat - Gastrointestinal Gastrointestinal: Present: other (colostomy) - Musculoskeletal Musculoskeletal: Present: back pain, joint pain - Neurological Neurological: Present: muscle weakness, other (memory loss, dementia) - Psychiatric Psychiatric: Present: anxiety, depression - Endocrine Endocrine: Present: diabetes - Vital Signs Last Vital Signs Temp 98.5 F 09/23/17 08:00 Pulse 104 H 09/23/17 08:00 Resp 18 09/23/17 08:00 BP 120/65 09/23/17 08:00 Pulse Ox 96 09/23/17 08:00 - Laboratory Result Diagrams: 09/22/17 07:53 09/20/17 13:34 - Microbiogy Microbiology 09/21/17 09:23 Urine, Voided (Cc/notcc) Urine Culture - Preliminary Coag negative Staphylococcus Streptococcus viridans group General Surgery Results - Results Labs: 09/22/17 07:53 Microbiology: Microbiology 09/21/17 09:23 Urine, Voided (Cc/notcc) Urine Culture - Preliminary Coag negative Staphylococcus Streptococcus viridans group Hospital Course Summary Disclaimer: The visit summary below is not to be considered part of the above Progress Note. Hospital Course: 09/21/17 10:23 Some paranoia but not distressing to the pt. Continue current care 09/21/17 12:03 09/21/17 Admit to [facility] under the care of the psychiatry team. Continue safe/supportive environment. Possible recurrent UTI- await cx. (may need to R/O fistula given hx of intra- abdominal infection) Lung mass needs to be evaluated- order CT w/o contrast for now given age. CT head as well given concern for malignancy. (Don't think she would cooperate for MRI) Add laxatives due to constipation. Monitor HTN and DM2- daily accu checks. No home meds are recorded for those problems. Consult wound clinic to help with chronic wound management. D/W RN today. Full code-may need to discuss code status depending on findings. 09/21/17 12:04 Assessment: Dementia Behavioral changes with hallucinations Lung mass, concern for malignancy HTN DM2 Constipation H/O Abnormal vaginal bleeding Recurrent UTI Colostomy Chronic vascular insufficiency wounds. 09/22/17 11:07 Psych Irritable and agitated today. Continue current care 09/22/17 15:41 [place] Consult pulmonology for further evaluation and possible bronchoscopy/biopsy this week to evaluate lung mass Start keflex 500 mg po BID empirically pending urine culture results given history of recurrent UTI, UA nitrite + and bacteriuria Continue safe/supportive environment Continue laxatives for constipation Monitor HTN and DM2- daily accu checks. No home meds are recorded for those problems and stable currently Consult wound clinic to help with chronic wound management (eval pending) 09/23/17 Plan Consulted pulmonology for further evaluation of probable malignant lung mass. Recommended by CM to complete treatment course of [facility]. Then will plan for outpatient workup and Bronchoscopy with Dr Forrester. Could consider obtaining CT brain with contrast to rule out mets. Will discuss with DPOA. Continues on Keflex for Pyuria- Culture revels Coag negative Staph. Awaiting sensitivity Monitor HTN and DM2- Diet control. Overall stable Attempted to nick DPOA May Powers (niece), to discuss plan of care. Will call later in the day 09/23/17 Psych: Discussed care with hospitalist and pulmonology - recommended biopsy of lung on outpatient basis after discharge from this unit. Currently on Keflex for UTI, still hallucinating frequently though behaviors have been minimal. Will increase HS Seroquel to 75mg PO q HS.
--- NOTE | 2017-09-23 17:02 | Consultation ---
DATE OF CONSULTATION 09/23/2017 FINDINGS Mrs. Kong is an 82-year-old female who is very well known to my wound care/ surgical practice. I have taken care of Carina on and off over the course of the last almost 20 years as a result of her history for venous ulcer disease as well as a prior history for perforated sigmoid diverticulitis. I was asked to see the patient today as a result of a venous ulceration involving her left lower extremity. The patient apparently now resides in a nearby [facility] facility. She had developed increasing confusion and agitation and was subsequently admitted to our [facility] facility for further care. I really was unable to obtain much information from Carina today. Her primary complaint was that she was thirsty and that her "mouth was dry." She was uncertain in regards to how long the wound had been present involving her left lateral malleolar region. Denied any pain associated with this open wound. PAST MEDICAL HISTORY, PAST SURGICAL HISTORY, MEDICATIONS, ALLERGIES, SOCIAL HISTORY, FAMILY HISTORY, REVIEW OF SYSTEMS Performed by my nurse practitioner, Fausto Francois APRN. PHYSICAL EXAMINATION GENERAL: Carina is an 82-year-old female who did not appear to be in acute distress. VITAL SIGNS: Temperature 98.5, pulse 104, respirations 18, blood pressure 120/ 65, SAO2 96% on room air. HEENT: Normocephalic. Pupils are equally round and react to light and accommodation. CHEST: Clear to auscultation bilaterally. HEART: Regular rate and rhythm. Normal S1 and S2 without gallops, murmurs or clicks. ABDOMEN: Abdomen soft, nontender. Colostomy is present within the left lower quadrant. EXTREMITIES: Attention was focused to her lower extremities. Involving the left lateral malleolar region the patient does have a chronic venous ulcer. This ulceration is on the order of about 3 cm in diameter. There is some fibrinous/bioburden material overlying the ulcer bed. There is no significant periwound erythema. The ulcer bed itself was fairly tender upon palpation. The patient also has quite disfigurement of her toes. Does have some calluses overlying the medial aspect of the first metatarsal head medially bilaterally. I do not see any other open wounds involving her feet and lower extremities. LABORATORY/RADIOGRAPHIC EVALUATION I did review the patient's chart briefly and did discover that she has a very large spiculated mass involving her left upper lobe suspicious for malignancy. Pulmonology consult has been put forth. ASSESSMENT An 82-year-old female with major neurocognitive disorder secondary to Alzheimer' s disease with probable behavioral disturbance. Patient with discovery of suspicious spiculated mass involving left upper lobe. Patient with chronic venous hypertension with associated venous ulceration involving left lateral malleolar region. PLAN Typically in this situation we would place a wound dressing overlying the venous ulcer followed by a 3M multilayer wrap. I do believe we would have a hard time keeping the wrap in place involving the left lower extremity given her dementia. We will place at this time orders to place Iodosorb overlying the venous ulcer to provide some enzymatic debridement followed by 4x4 followed by some form of compression to the left lower extremity, either by an [place] wrap or [place] compression stocking. Will continue to follow intermittently in regards to the patient's venous ulcer disease. MEGA
[2017-09-23] MEDS: DONEPEZIL 10 MG TABLET PO SCH ×2 (20:40→21:02)
[2017-09-24] MEDS: CYANOCOBALAMIN (B-12) 500mcg TABLET PO SCH (11:31)
[2017-09-24] MEDS: QUETIAPINE 50 MG TABLET PO SCH ×2 (11:32→20:33)
[2017-09-24] MEDS: SERTRALINE 50 MG TABLET PO SCH (11:32)
[2017-09-24] MEDS: SENNA + DOCUSATE TABLET PO SCH ×2 (11:32→20:33)
[2017-09-24] MEDS: MEMANTINE 5 MG TABLET PO SCH ×2 (11:32→20:33)
--- NOTE | 2017-09-24 12:28 | Neuropsych Progress Note ---
[facility] Subjective Date: 09/24/17 - Sujective/Severity of Illness Medications: Acetaminophen (Tylenol) 500 mg PO Q5H PRN PRN Reason: Discomfort Cephalexin HCl (Keflex) 500 mg PO Q12HR [facility] Last Admin: 09/24/17 11:31 Dose: 500 mg Cholecalciferol (Vit. D-3) 1,000 unit PO DAILY [facility] Last Admin: 09/24/17 11:32 Dose: 1,000 unit Cyanocobalamin (Vit. B-12) 1,000 mcg PO DAILY [facility] Last Admin: 09/24/17 11:31 Dose: 1,000 mcg Donepezil HCl (Aricept) 10 mg PO HS [facility] Last Admin: 09/23/17 21:02 Dose: Not Given Haloperidol (Haldol) 0.5 mg PO Q6H PRN PRN Reason: Extreme agitation Last Admin: 09/23/17 20:52 Dose: 0.5 mg Haloperidol Lactate (Haldol) 0.5 mg IM Q6H PRN PRN Reason: Extreme agitation Last Admin: 09/22/17 10:21 Dose: 0.5 mg Lorazepam (Ativan Inj) 0.5 mg IM Q6H PRN PRN Reason: Extreme agitation Last Admin: 09/23/17 01:50 Dose: 0.5 mg Lorazepam (Ativan) 0.5 mg PO Q6H PRN PRN Reason: Extreme agitation Last Admin: 09/21/17 09:21 Dose: 0.5 mg Magnesium Hydroxide (Mom) 30 ml PO DAILY PRN PRN Reason: Constipation /Stool softening Memantine (Namenda) 5 mg PO BID [facility] Last Admin: 09/24/17 11:32 Dose: 5 mg Quetiapine Fumarate (Seroquel) 50 mg PO DAILY [facility] Last Admin: 09/24/17 11:32 Dose: 50 mg Quetiapine Fumarate (Seroquel) 75 mg PO HS [facility] Last Admin: 09/23/17 20:51 Dose: 75 mg Senna/Docusate Sodium (Senna Plus Tablet) 1 tab PO BID [facility] Last Admin: 09/24/17 11:32 Dose: 1 tab Sertraline HCl (Zoloft) 50 mg PO DAILY [facility] Last Admin: 09/24/17 11:32 Dose: 50 mg Subjective: Patient seen and chart reviewed. Case discussed with treatment team. On interview, patient is calm and cooperative. She reports her mood is good and she feels well physically. She has no insight into symptoms or hospitalization. Patient denies any SI or HI. Patient denies any adverse side effects related to psychotropic medications. Nursing staff report patient has continued to respond to internal stimuli, has been argumentative, and has been resistant to cares. Patient slept 5.25 hours overnight. VSS. Patient is eating well. Psychotropic PRNs required in the past 24 hours: Haldol 0.5mg PO x1. Lung mass was found and hospitalist has been determined it can be worked up on an outpatient basis; will need biopsy after discharge. 09/21/[address] without contrast: Generalized atrophy. The ventricles are of normal size, shape, and contour for the patient's age. Chronic appearing left caudate area of lacunar infarct. There are scattered areas of low attenuation in the white matter which most likely represent changes from chronic microvascular ischemia. The brainstem, cerebellum, and cerebral hemispheres otherwise have a normal morphology and CT attenuation. There is no evidence of midline displacement. No hemorrhage, signs of acute territorial stroke, mass effect, mass lesions, or edema is evident. The visualized portions of the skull base, midface, and calvarium demonstrate no acute findings. Hyperostosis frontalis interna. The paranasal sinuses are well aerated and free of significant disease. The tympanic and mastoid cavities appear normal. IMPRESSION: No acute intracranial abnormality or hemorrhage. Start Time: 09:20 Stop Time: 09:40 Mental Status Exam Vitals: Last Vital Signs Temp 98.3 F 09/23/17 22:07 Pulse 79 09/23/17 22:07 Resp 20 09/23/17 22:07 BP 122/67 09/23/17 22:07 Pulse Ox 96 09/23/17 22:07 Height: 1.5 m Weight: 70.1 kg - Mental Status Exam Muscle Strength/Tone: Weak Dressing: Casual Grooming: Fair Attitude: Cooperative, Combative (with staff) Motor Activity: Retardation Eye Contact: Fair Speech: Slowed Volume: Soft Rhythm: Mumbled Orientation: Disoriented to time, Disoriented to place, Disoriented to situation , Oriented to person Mood: Euthymic (affect calm during interview but labile on unit) Rate of Thoughts: Delayed Thought Organization: [place] Associations: Loose-associations Abstract Reasoning: Poor abstract reasoning Thought Content: Delusions Perception/Psychotic: Perception Normal Current Hallucinations: Visual, Auditory Language: Naming Impaired Fund of Knowledge: Poor fund of knowledge Memory: Poor-immediate, Poor-recent Suicidal Ideation: Denies Homicidal Ideation: Denies Insight: Poor Judgement: Poor Impulse Control: Poor - Laboratory Result Diagrams: 09/22/17 07:53 09/20/17 13:34 Laboratory Results - last 24 hr 09/24/17 09/24/17 06:15 06:57 Glucometer 100 Triglycerides 178 H Cholesterol 153 LDL Cholesterol, Calc 81.4 VLDL Cholesterol 35.6 H HDL Cholesterol 36 L Cholesterol/HDL Ratio 4.3 H Assessment and Plan (1) 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 Current visit: Yes Status: Acute (2) Lung mass Current visit: Yes Status: Acute (3) Hypertension Current visit: Yes Status: Acute (4) Type 2 diabetes mellitus Current visit: Yes Status: Acute (5) UTI (urinary tract infection) Current visit: Yes Status: Acute Hospital Course Summary Disclaimer: The visit summary below is not to be considered part of the above Progress Note. Hospital Course: 09/21/17 10:23 Some paranoia but not distressing to the pt. Continue current care 09/21/17 12:03 09/21/17 Admit to [facility] under the care of the psychiatry team. Continue safe/supportive environment. Possible recurrent UTI- await cx. (may need to R/O fistula given hx of intra- abdominal infection) Lung mass needs to be evaluated- order CT w/o contrast for now given age. CT head as well given concern for malignancy. (Don't think she would cooperate for MRI) Add laxatives due to constipation. Monitor HTN and DM2- daily accu checks. No home meds are recorded for those problems. Consult wound clinic to help with chronic wound management. D/W RN today. Full code-may need to discuss code status depending on findings. 09/21/17 12:04 Assessment: Dementia Behavioral changes with hallucinations Lung mass, concern for malignancy HTN DM2 Constipation H/O Abnormal vaginal bleeding Recurrent UTI Colostomy Chronic vascular insufficiency wounds. 09/22/17 11:07 Psych Irritable and agitated today. Continue current care 09/22/17 15:41 [place] Consult pulmonology for further evaluation and possible bronchoscopy/biopsy this week to evaluate lung mass Start keflex 500 mg po BID empirically pending urine culture results given history of recurrent UTI, UA nitrite + and bacteriuria Continue safe/supportive environment Continue laxatives for constipation Monitor HTN and DM2- daily accu checks. No home meds are recorded for those problems and stable currently Consult wound clinic to help with chronic wound management (eval pending) 09/23/17 Plan Consulted pulmonology for further evaluation of probable malignant lung mass. Recommended by CM to complete treatment course of [facility]. Then will plan for outpatient workup and Bronchoscopy with Dr Forrester. Could consider obtaining CT brain with contrast to rule out mets. Will discuss with DPOA. Continues on Keflex for Pyuria- Culture revels Coag negative Staph. Awaiting sensitivity Monitor HTN and DM2- Diet control. Overall stable Attempted to nick DPOA May Powers (niece), to discuss plan of care. Will call later in the day 09/23/17 Psych: Discussed care with hospitalist and pulmonology - recommended biopsy of lung on outpatient basis after discharge from this unit. Currently on Keflex for UTI, still hallucinating frequently though behaviors have been minimal. Will increase HS Seroquel to 75mg PO q HS. 09/24/17 Psych: Discussed care with hospitalist - they are planning to order CT without contrast to r/o any brain mets from lung mass. Will continue current care with focus on adherence to medications, especially antibiotic and antipyschotic medication, and monitor behavior/response.
[2017-09-24] MEDS ORDERED: SALINE FLUSH 10ml SYRINGE ONE (15:34)
[2017-09-24] MEDS ORDERED: NS 100 ML ONE (15:34)
[2017-09-24] MEDS ORDERED: IOHEXOL 300mg/ml 50ml INJECTION ONE (15:34)
--- NOTE | 2017-09-24 16:21 | CT Scan Report ---
Indication: hallucinations, behavioral changes - r/o brain mets PROCEDURE: CT head/brain wo/w con: Encounter: Initial Comparison: Head CT dated September 21, 2017 Technique: Axial CT images through the head were performed without and with IV contrast. Iterative Reconstruction dose reducing technique was utilized. Contrast: Omnipaque 300 50mL FINDINGS: The ventricles are of normal size, shape, and contour for the patient's age. Scattered low-attenuation white matter changes consistent with chronic microvascular ischemia. 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 The brainstem, cerebellum, and cerebral hemispheres have a normal morphology and CT attenuation. No hemorrhage, mass effect, mass lesions, or edema is evident. No areas of abnormal enhancement are seen. The visualized portions of the skull base, sinuses, and calvarium demonstrate no acute abnormality. IMPRESSION: Stable head CT. No evidence of enhancing intracranial metastatic disease. .
--- NOTE | 2017-09-24 16:31 | Progress Note ---
Progress Note: Chart reviewed and discussed with Dr. Love and Dr. Childers. Will check CT head with contrast to look for brain mets which could be contributing to her behaviors. Recommend pulmonary work-up on an OP basis.
[2017-09-24] MEDS: DONEPEZIL 10 MG TABLET PO SCH (20:33)
[2017-09-25] MEDS: QUETIAPINE 50 MG TABLET PO SCH ×2 (09:38→21:00)
[2017-09-25] MEDS: MEMANTINE 5 MG TABLET PO SCH ×2 (15:06→21:08)
[2017-09-25] MEDS: CYANOCOBALAMIN (B-12) 500mcg TABLET PO SCH (15:06)
[2017-09-25] MEDS: SENNA + DOCUSATE TABLET PO SCH ×2 (15:06→21:10)
[2017-09-25] MEDS: SERTRALINE 50 MG TABLET PO SCH (15:06)
[2017-09-25] MEDS ORDERED: LORazepam INTENSOL 1mg/0.5ml ORAL LIQUID PO PRN (15:08)
[2017-09-25] MEDS: HALOPERIDOL 1 MG/0.5 ML ORAL LIQUID PO PRN (15:19)
--- NOTE | 2017-09-25 19:48 | Neuropsych Progress Note ---
[facility] Subjective Date: 09/25/17 - Sujective/Severity of Illness Medications: Acetaminophen (Tylenol) 500 mg PO Q5H PRN PRN Reason: Discomfort Cephalexin HCl (Keflex) 500 mg PO Q12HR [facility] Last Admin: 09/25/17 09:38 Dose: 500 mg Cholecalciferol (Vit. D-3) 1,000 unit PO DAILY [facility] Last Admin: 09/25/17 15:05 Dose: Not Given Cyanocobalamin (Vit. B-12) 1,000 mcg PO DAILY [facility] Last Admin: 09/25/17 15:06 Dose: Not Given Donepezil HCl (Aricept) 10 mg PO HS [facility] Last Admin: 09/24/17 20:33 Dose: Not Given Haloperidol (Haldol) 0.5 mg PO Q6H PRN PRN Reason: Extreme agitation Last Admin: 09/23/17 20:52 Dose: 0.5 mg Haloperidol Decanoate (Haldol Liquid) 0.5 mg PO Q6H PRN Last Admin: 09/25/17 15:19 Dose: 0.5 mg Haloperidol Lactate (Haldol) 0.5 mg IM Q6H PRN PRN Reason: Extreme agitation Last Admin: 09/22/17 10:21 Dose: 0.5 mg Lorazepam (Ativan Inj) 0.5 mg IM Q6H PRN PRN Reason: Extreme agitation Last Admin: 09/24/17 20:45 Dose: 0.5 mg Lorazepam (Ativan) 0.5 mg PO Q6H PRN PRN Reason: Extreme agitation Last Admin: 09/21/17 09:21 Dose: 0.5 mg Lorazepam (Ativan Intensol) 0.5 mg PO Q6H PRN Last Admin: 09/25/17 15:19 Dose: 0.5 mg Magnesium Hydroxide (Mom) 30 ml PO DAILY PRN PRN Reason: Constipation /Stool softening Memantine (Namenda) 5 mg PO BID [facility] Last Admin: 09/25/17 15:06 Dose: Not Given Quetiapine Fumarate (Seroquel) 50 mg PO DAILY [facility] Last Admin: 09/25/17 09:38 Dose: 50 mg Quetiapine Fumarate (Seroquel) 75 mg PO HS [facility] Last Admin: 09/24/17 20:33 Dose: Not Given Senna/Docusate Sodium (Senna Plus Tablet) 1 tab PO BID [facility] Last Admin: 09/25/17 15:06 Dose: Not Given Sertraline HCl (Zoloft) 50 mg PO DAILY [facility] Last Admin: 09/25/17 15:06 Dose: Not Given Subjective: Patient seen and chart reviewed. Case discussed with treatment team. On interview, patient is calm and cooperative. She reports her mood is good and she feels well physically. She has no insight into symptoms or hospitalization. She does not make any delusional or paranoid statements though she has with staff at times. Patient denies any SI or HI. Patient denies any adverse side effects related to psychotropic medications. Nursing staff report patient has continued to respond to internal stimuli, has been argumentative, and has been resistant/aggressive with cares. She refused meds last night despite multiple approaches. Patient slept 8.5 hours overnight. VSS. Patient is eating well. Psychotropic PRNs required in the past 24 hours: Ativan 0.5mg IM at HS. Lung mass was found and hospitalist has been determined it can be worked up on an outpatient basis; will need biopsy after discharge. Start Time: 13:20 Stop Time: 13:40 Mental Status Exam Vitals: Last Vital Signs Temp 98.4 F 09/25/17 15:28 Pulse 79 09/25/17 15:28 Resp 20 09/25/17 15:28 BP 124/58 09/25/17 15:28 Pulse Ox 95 09/25/17 15:28 Height: 1.5 m Weight: 70.1 kg - Mental Status Exam Muscle Strength/Tone: Weak Dressing: Casual Grooming: Fair Attitude: Cooperative, Combative (with staff) Motor Activity: Retardation Eye Contact: Fair Speech: Slowed Volume: Soft Rhythm: Mumbled Orientation: Disoriented to time, Disoriented to place, Disoriented to situation , Oriented to person Mood: Euthymic (affect calm during interview but labile on unit) Rate of Thoughts: Delayed Thought Organization: [place] Associations: Loose-associations Abstract Reasoning: Poor abstract reasoning Thought Content: Delusions Perception/Psychotic: Psychotic Current Hallucinations: Visual, Auditory Language: Naming Impaired Fund of Knowledge: Poor fund of knowledge Memory: Poor-immediate, Poor-recent Suicidal Ideation: Denies Homicidal Ideation: Denies Insight: Poor Judgement: Poor Impulse Control: Poor - Laboratory Result Diagrams: 09/22/17 07:53 12/05/17 06:57 Laboratory Results - last 24 hr 09/25/17 05:06 Glucometer 95 Assessment and Plan (1) 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 Current visit: Yes Status: Acute (2) Lung mass Current visit: Yes Status: Acute (3) Hypertension Current visit: Yes Status: Acute (4) Type 2 diabetes mellitus Current visit: Yes Status: Acute (5) UTI (urinary tract infection) Current visit: Yes Status: Acute Hospital Course Summary Disclaimer: The visit summary below is not to be considered part of the above Progress Note. Hospital Course: 09/21/17 10:23 Some paranoia but not distressing to the pt. Continue current care 09/21/17 12:03 09/21/17 Admit to [facility] under the care of the psychiatry team. Continue safe/supportive environment. Possible recurrent UTI- await cx. (may need to R/O fistula given hx of intra- abdominal infection) Lung mass needs to be evaluated- order CT w/o contrast for now given age. CT head as well given concern for malignancy. (Don't think she would cooperate for MRI) Add laxatives due to constipation. Monitor HTN and DM2- daily accu checks. No home meds are recorded for those problems. Consult wound clinic to help with chronic wound management. D/W RN today. Full code-may need to discuss code status depending on findings. 09/21/17 12:04 Assessment: Dementia Behavioral changes with hallucinations Lung mass, concern for malignancy HTN DM2 Constipation H/O Abnormal vaginal bleeding Recurrent UTI Colostomy Chronic vascular insufficiency wounds. 09/22/17 11:07 Psych Irritable and agitated today. Continue current care 09/22/17 15:41 [place] Consult pulmonology for further evaluation and possible bronchoscopy/biopsy this week to evaluate lung mass Start keflex 500 mg po BID empirically pending urine culture results given history of recurrent UTI, UA nitrite + and bacteriuria Continue safe/supportive environment Continue laxatives for constipation Monitor HTN and DM2- daily accu checks. No home meds are recorded for those problems and stable currently Consult wound clinic to help with chronic wound management (eval pending) 09/23/17 Plan Consulted pulmonology for further evaluation of probable malignant lung mass. Recommended by CM to complete treatment course of [facility]. Then will plan for outpatient workup and Bronchoscopy with Dr Forrester. Could consider obtaining CT brain with contrast to rule out mets. Will discuss with DPOA. Continues on Keflex for Pyuria- Culture revels Coag negative Staph. Awaiting sensitivity Monitor HTN and DM2- Diet control. Overall stable Attempted to nick DPOA May Powers (niece), to discuss plan of care. Will call later in the day 09/23/17 Psych: Discussed care with hospitalist and pulmonology - recommended biopsy of lung on outpatient basis after discharge from this unit. Currently on Keflex for UTI, still hallucinating frequently though behaviors have been minimal. Will increase HS Seroquel to 75mg PO q HS. 09/24/17 Psych: Discussed care with hospitalist - they are planning to order CT without contrast to r/o any brain mets from lung mass. Will continue current care with focus on adherence to medications, especially antibiotic and antipyschotic medication, and monitor behavior/response. 09/25/17 Psych: Will order Haldol 0.5mg IM to be given if patient refuses scheduled antipsychotic; monitor mood, behavior and response to treatment.
[2017-09-25] MEDS: DONEPEZIL 10 MG TABLET PO SCH (21:07)
[2017-09-26] MEDS: HALOPERIDOL 1 MG/0.5 ML ORAL LIQUID PO PRN (00:20)
[2017-09-26] MEDS ORDERED: HALOPERIDOL 5 MG/ML INJECTION IM PRN (09:01)
[2017-09-26] MEDS: MEMANTINE 5 MG TABLET PO SCH ×2 (09:05→21:00)
[2017-09-26] MEDS: QUETIAPINE 50 MG TABLET PO SCH ×2 (09:05→21:00)
[2017-09-26] MEDS: SERTRALINE 50 MG TABLET PO SCH (09:05)
--- NOTE | 2017-09-26 09:08 | Progress Note ---
Progress Note: Patient's chart reviewed including VS's, labs, nurses notes, meds and psych note. Her CT head was neg for any sign of brain mets. She is on Keflex for UTI. The coag neg staph is likely colonization, the strep viridans should be covered by the Keflex. Will continue for 7 days total with last day of atbx to be 12/10.
--- NOTE | 2017-09-26 10:30 | Neuropsych Progress Note ---
[facility] Subjective Date: 09/26/17 - Sujective/Severity of Illness Medications: Acetaminophen (Tylenol) 500 mg PO Q5H PRN PRN Reason: Discomfort Cephalexin HCl (Keflex) 500 mg PO Q12HR [facility] Stop: 09/29/17 23:59 Last Admin: 09/26/17 09:05 Dose: 500 mg Cholecalciferol (Vit. D-3) 1,000 unit PO DAILY [facility] Last Admin: 09/25/17 15:05 Dose: Not Given Cyanocobalamin (Vit. B-12) 1,000 mcg PO DAILY [facility] Last Admin: 09/25/17 15:06 Dose: Not Given Donepezil HCl (Aricept) 10 mg PO HS [facility] Last Admin: 09/25/17 21:07 Dose: 10 mg Haloperidol (Haldol) 0.5 mg PO Q6H PRN PRN Reason: Extreme agitation Last Admin: 09/23/17 20:52 Dose: 0.5 mg Haloperidol Decanoate (Haldol Liquid) 0.5 mg PO Q6H PRN Last Admin: 09/25/17 15:19 Dose: 0.5 mg Haloperidol Lactate (Haldol) 0.5 mg IM BID PRN PRN Reason: See comments below Lorazepam (Ativan Inj) 0.5 mg IM Q6H PRN PRN Reason: Extreme agitation Last Admin: 09/24/17 20:45 Dose: 0.5 mg Lorazepam (Ativan) 0.5 mg PO Q6H PRN PRN Reason: Extreme agitation Last Admin: 09/21/17 09:21 Dose: 0.5 mg Lorazepam (Ativan Intensol) 0.5 mg PO Q6H PRN Last Admin: 09/25/17 15:19 Dose: 0.5 mg Magnesium Hydroxide (Mom) 30 ml PO DAILY PRN PRN Reason: Constipation /Stool softening Memantine (Namenda) 5 mg PO BID [facility] Last Admin: 09/26/17 09:05 Dose: 5 mg Quetiapine Fumarate (Seroquel) 50 mg PO DAILY [facility] Last Admin: 09/26/17 09:05 Dose: 50 mg Quetiapine Fumarate (Seroquel) 75 mg PO HS [facility] Last Admin: 09/25/17 21:00 Dose: 75 mg Senna/Docusate Sodium (Senna Plus Tablet) 1 tab PO BID [facility] Last Admin: 09/25/17 21:10 Dose: 1 tab Sertraline HCl (Zoloft) 50 mg PO DAILY [facility] Last Admin: 09/26/17 09:05 Dose: 50 mg Subjective: Patient seen and chart reviewed. Case discussed with treatment team. Patient is sleeping soundly at time of rounds; MSE below based on my last interaction with patient. Patie has repeatedly denied any SI or HI. Patient has denied any adverse side effects related to psychotropic medications. Nursing staff report patient spoke of delusions during day yesterday and became quite agitated with cares. She has been resistant to meds or refused at times. Patient woke ~midnight agitated because she believed there was a fire but calmed with music and staff sitting with her. Patient slept 8.25 hours overnight. VSS. Patient is eating well. Psychotropic PRNs required in the past 24 hours: Ativan 0.5mg and Haldol 0.5mg PO at 1526. Lung mass was found and hospitalist has been determined it can be worked up on an outpatient basis; will need biopsy after discharge. CT of head negative for metastases. Start Time: 06:00 Stop Time: 06:20 Mental Status Exam Vitals: Last Vital Signs Temp 97.9 F 09/26/17 08:00 Pulse 73 09/26/17 08:00 Resp 18 09/26/17 08:00 BP 134/68 09/26/17 08:00 Pulse Ox 93 09/26/17 08:00 Height: 1.5 m Weight: 70.1 kg - Mental Status Exam Muscle Strength/Tone: Weak Dressing: Casual Grooming: Fair Attitude: Cooperative, Combative (with staff) Motor Activity: Retardation Eye Contact: Fair Speech: Slowed Volume: Soft Rhythm: Mumbled Orientation: Disoriented to time, Disoriented to place, Disoriented to situation , Oriented to person Mood: Euthymic (affect calm during interview but labile on unit) Rate of Thoughts: Delayed Thought Organization: [place] Associations: Loose-associations Abstract Reasoning: Poor abstract reasoning Thought Content: Delusions Perception/Psychotic: Psychotic Current Hallucinations: Visual, Auditory Language: Naming Impaired Fund of Knowledge: Poor fund of knowledge Memory: Poor-immediate, Poor-recent Suicidal Ideation: Denies Homicidal Ideation: Denies Insight: Poor Judgement: Poor Impulse Control: Poor - Laboratory Result Diagrams: 09/22/17 07:53 09/24/17 06:57 Laboratory Results - last 24 hr 09/26/17 06:17 Glucometer 95 Assessment and Plan (1) 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 Current visit: Yes Status: Acute (2) Lung mass Current visit: Yes Status: Acute (3) Hypertension Current visit: Yes Status: Acute (4) Type 2 diabetes mellitus Current visit: Yes Status: Acute (5) UTI (urinary tract infection) Current visit: Yes Status: Acute Hospital Course Summary Disclaimer: The visit summary below is not to be considered part of the above Progress Note. Hospital Course: 09/21/17 10:23 Some paranoia but not distressing to the pt. Continue current care 09/21/17 12:03 09/21/17 Admit to [facility] under the care of the psychiatry team. Continue safe/supportive environment. Possible recurrent UTI- await cx. (may need to R/O fistula given hx of intra- abdominal infection) Lung mass needs to be evaluated- order CT w/o contrast for now given age. CT head as well given concern for malignancy. (Don't think she would cooperate for MRI) Add laxatives due to constipation. Monitor HTN and DM2- daily accu checks. No home meds are recorded for those problems. Consult wound clinic to help with chronic wound management. D/W RN today. Full code-may need to discuss code status depending on findings. 09/21/17 12:04 Assessment: Dementia Behavioral changes with hallucinations Lung mass, concern for malignancy HTN DM2 Constipation H/O Abnormal vaginal bleeding Recurrent UTI Colostomy Chronic vascular insufficiency wounds. 09/22/17 11:07 Psych Irritable and agitated today. Continue current care 09/22/17 15:41 [place] Consult pulmonology for further evaluation and possible bronchoscopy/biopsy this week to evaluate lung mass Start keflex 500 mg po BID empirically pending urine culture results given history of recurrent UTI, UA nitrite + and bacteriuria Continue safe/supportive environment Continue laxatives for constipation Monitor HTN and DM2- daily accu checks. No home meds are recorded for those problems and stable currently Consult wound clinic to help with chronic wound management (eval pending) 09/23/17 Plan Consulted pulmonology for further evaluation of probable malignant lung mass. Recommended by CM to complete treatment course of [facility]. Then will plan for outpatient workup and Bronchoscopy with Dr Forrester. Could consider obtaining CT brain with contrast to rule out mets. Will discuss with DPOA. Continues on Keflex for Pyuria- Culture revels Coag negative Staph. Awaiting sensitivity Monitor HTN and DM2- Diet control. Overall stable Attempted to nick DPOA May Powers (niece), to discuss plan of care. Will call later in the day 09/23/17 Psych: Discussed care with hospitalist and pulmonology - recommended biopsy of lung on outpatient basis after discharge from this unit. Currently on Keflex for UTI, still hallucinating frequently though behaviors have been minimal. Will increase HS Seroquel to 75mg PO q HS. 09/24/17 Psych: Discussed care with hospitalist - they are planning to order CT without contrast to r/o any brain mets from lung mass. Will continue current care with focus on adherence to medications, especially antibiotic and antipyschotic medication, and monitor behavior/response. 09/25/17 Psych: Will order Haldol 0.5mg IM to be given if patient refuses scheduled antipsychotic; monitor mood, behavior and response to treatment. 09/26/17 Psych: Will monitor behavior with ensured compliance with antipsychotics (with IM option available if PO refused). Will consider switching to alternative antipsychotic such as Risperdal or increasing dose if behaviors continue. Keflex to be taken through 09/29 per hospitalist.
[2017-09-26] MEDS: CYANOCOBALAMIN (B-12) 500mcg TABLET PO SCH ×2 (12:29→19:38)
[2017-09-26] MEDS: SENNA + DOCUSATE TABLET PO SCH ×3 (12:29→21:01)
[2017-09-26] MEDS: DONEPEZIL 10 MG TABLET PO SCH (21:00)
--- NOTE | 2017-09-27 11:20 | Neuropsych Progress Note ---
[facility] Subjective Date: 09/27/17 - Sujective/Severity of Illness Medications: Acetaminophen (Tylenol) 500 mg PO Q5H PRN PRN Reason: Discomfort Cephalexin HCl (Keflex) 500 mg PO Q12HR [facility] Stop: 09/29/17 23:59 Last Admin: 09/26/17 21:00 Dose: 500 mg Cholecalciferol (Vit. D-3) 1,000 unit PO DAILY [facility] Last Admin: 09/26/17 19:38 Dose: Not Given Cyanocobalamin (Vit. B-12) 1,000 mcg PO DAILY [facility] Last Admin: 09/26/17 19:38 Dose: Not Given Donepezil HCl (Aricept) 10 mg PO HS [facility] Last Admin: 09/26/17 21:00 Dose: 10 mg Haloperidol (Haldol) 0.5 mg PO Q6H PRN PRN Reason: Extreme agitation Last Admin: 09/23/17 20:52 Dose: 0.5 mg Haloperidol Decanoate (Haldol Liquid) 0.5 mg PO Q6H PRN Last Admin: 09/25/17 15:19 Dose: 0.5 mg Haloperidol Lactate (Haldol) 0.5 mg IM BID PRN PRN Reason: See comments below Lorazepam (Ativan Inj) 0.5 mg IM Q6H PRN PRN Reason: Extreme agitation Last Admin: 09/24/17 20:45 Dose: 0.5 mg Lorazepam (Ativan) 0.5 mg PO Q6H PRN PRN Reason: Extreme agitation Last Admin: 09/21/17 09:21 Dose: 0.5 mg Lorazepam (Ativan Intensol) 0.5 mg PO Q6H PRN Last Admin: 09/25/17 15:19 Dose: 0.5 mg Magnesium Hydroxide (Mom) 30 ml PO DAILY PRN PRN Reason: Constipation /Stool softening Memantine (Namenda) 5 mg PO BID [facility] Last Admin: 09/26/17 21:00 Dose: 5 mg Quetiapine Fumarate (Seroquel) 50 mg PO DAILY [facility] Last Admin: 09/26/17 09:05 Dose: 50 mg Quetiapine Fumarate (Seroquel) 75 mg PO HS [facility] Last Admin: 09/26/17 21:00 Dose: 75 mg Senna/Docusate Sodium (Senna Plus Tablet) 1 tab PO BID [facility] Last Admin: 09/26/17 21:01 Dose: Not Given Sertraline HCl (Zoloft) 50 mg PO DAILY [facility] Last Admin: 09/26/17 09:05 Dose: 50 mg Subjective: Patient seen and chart reviewed. Case discussed with treatment team. Patient is in her room combing her hair on approach and is preoccupied with hallucinations and having a conversation with Dior, her 's mistress (in her delusions). She does not seem to be in any distress. Patie has repeatedly denied any SI or HI. Patient has denied any adverse side effects related to psychotropic medications. Nursing staff report patient woke up early this AM concerned about a tornado and hallucinated a house fire yesterday but otherwise has been cooperative with no physical aggression. Patient slept 7.25 hours overnight. VSS. Patient is eating well. Psychotropic PRNs required in the past 24 hours: None. Lung mass was found and hospitalist has been determined it can be worked up on an outpatient basis; will need biopsy after discharge. CT of head negative for metastases. Start Time: 09:20 Stop Time: 09:40 Mental Status Exam Vitals: Last Vital Signs Temp 98.4 F 09/27/17 10:55 Pulse 101 H 09/27/17 10:55 Resp 20 09/27/17 10:55 BP 118/67 09/27/17 10:55 Pulse Ox 96 09/27/17 10:55 Height: 1.5 m Weight: 70.9 kg - Mental Status Exam Muscle Strength/Tone: Weak Dressing: Casual Grooming: Fair Attitude: Cooperative, Combative (with staff) Motor Activity: Retardation Eye Contact: Fair Speech: Slowed Volume: Soft Rhythm: Mumbled Orientation: Disoriented to time, Disoriented to place, Disoriented to situation , Oriented to person Mood: Euthymic (affect calm during interview, can have episodes of anxiety on unit) Affect: Bright Rate of Thoughts: Delayed Thought Organization: [place] Associations: Loose-associations Abstract Reasoning: Poor abstract reasoning Thought Content: Delusions Perception/Psychotic: Psychotic Current Hallucinations: Visual, Auditory Language: Naming Impaired Fund of Knowledge: Poor fund of knowledge Memory: Poor-immediate, Poor-recent Suicidal Ideation: Denies Homicidal Ideation: Denies Insight: Impaired Judgement: Impaired Impulse Control: Fair - Laboratory Result Diagrams: 09/22/17 07:53 09/24/17 06:57 Laboratory Results - last 24 hr 09/27/17 10:44 Glucometer 102 Assessment and Plan (1) 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 Current visit: Yes Status: Acute (2) Lung mass Current visit: Yes Status: Acute (3) Hypertension Current visit: Yes Status: Acute (4) Type 2 diabetes mellitus Current visit: Yes Status: Acute (5) UTI (urinary tract infection) Current visit: Yes Status: Acute Hospital Course Summary Disclaimer: The visit summary below is not to be considered part of the above Progress Note. Hospital Course: 09/21/17 10:23 Some paranoia but not distressing to the pt. Continue current care 09/21/17 12:03 09/21/17 Admit to [facility] under the care of the psychiatry team. Continue safe/supportive environment. Possible recurrent UTI- await cx. (may need to R/O fistula given hx of intra- abdominal infection) Lung mass needs to be evaluated- order CT w/o contrast for now given age. CT head as well given concern for malignancy. (Don't think she would cooperate for MRI) Add laxatives due to constipation. Monitor HTN and DM2- daily accu checks. No home meds are recorded for those problems. Consult wound clinic to help with chronic wound management. D/W RN today. Full code-may need to discuss code status depending on findings. 09/21/17 12:04 Assessment: Dementia Behavioral changes with hallucinations Lung mass, concern for malignancy HTN DM2 Constipation H/O Abnormal vaginal bleeding Recurrent UTI Colostomy Chronic vascular insufficiency wounds. 09/22/17 11:07 Psych Irritable and agitated today. Continue current care 09/22/17 15:41 [place] Consult pulmonology for further evaluation and possible bronchoscopy/biopsy this week to evaluate lung mass Start keflex 500 mg po BID empirically pending urine culture results given history of recurrent UTI, UA nitrite + and bacteriuria Continue safe/supportive environment Continue laxatives for constipation Monitor HTN and DM2- daily accu checks. No home meds are recorded for those problems and stable currently Consult wound clinic to help with chronic wound management (eval pending) 09/23/17 Plan Consulted pulmonology for further evaluation of probable malignant lung mass. Recommended by CM to complete treatment course of [facility]. Then will plan for outpatient workup and Bronchoscopy with Dr Forrester. Could consider obtaining CT brain with contrast to rule out mets. Will discuss with DPOA. Continues on Keflex for Pyuria- Culture revels Coag negative Staph. Awaiting sensitivity Monitor HTN and DM2- Diet control. Overall stable Attempted to nick DPOA May Powers (niece), to discuss plan of care. Will call later in the day 09/23/17 Psych: Discussed care with hospitalist and pulmonology - recommended biopsy of lung on outpatient basis after discharge from this unit. Currently on Keflex for UTI, still hallucinating frequently though behaviors have been minimal. Will increase HS Seroquel to 75mg PO q HS. 09/24/17 Psych: Discussed care with hospitalist - they are planning to order CT without contrast to r/o any brain mets from lung mass. Will continue current care with focus on adherence to medications, especially antibiotic and antipyschotic medication, and monitor behavior/response. 09/25/17 Psych: Will order Haldol 0.5mg IM to be given if patient refuses scheduled antipsychotic; monitor mood, behavior and response to treatment. 09/26/17 Psych: Will monitor behavior with ensured compliance with antipsychotics (with IM option available if PO refused). Will consider switching to alternative antipsychotic such as Risperdal or increasing dose if behaviors continue. Keflex to be taken through 09/29 per hospitalist. 09/27/17 Psych: Will increase Zoloft to 75mg (and possibly 100mg in future) to target continued anxiety. AVH have been non-distressing in nature and patient has been much more cooperative, not aggressive with staff.
[2017-09-27] MEDS: QUETIAPINE 50 MG TABLET PO SCH ×2 (12:01→20:00)
[2017-09-27] MEDS: CYANOCOBALAMIN (B-12) 500mcg TABLET PO SCH (12:01)
[2017-09-27] MEDS: MEMANTINE 5 MG TABLET PO SCH ×2 (12:04→20:00)
[2017-09-27] MEDS: SENNA + DOCUSATE TABLET PO SCH ×2 (12:05→20:00)
--- NOTE | 2017-09-27 15:52 | Progress Note ---
- Date 09/27/17 Subjective: Carina is seen today in follow up for her recurrent UTI, dementia with behaviors and hallucinations. She is seen while sitting in her wheelchair in the day room, listening to music with the other patients. She is actively participating in the group activity and in no apparent distress. She denies any complaints including no chest pain, shortness of breath, abdominal pain, nausea, vomiting or dysuria. Nursing reports that she continues to be delusional and will actively engage in conversations with her , boyfriend and/or her girlfriend, Jeannine. Vital signs remain stable. Appetite is stable and bowels are moving. She remains on Keflex for UTI which is to be complete on 09/29. UA culture revealed coag negative staph and strep viridans with multi-drug resistance, though cephalosporins were no assessed. Patient remains asymptomatic. Blood sugars have been well controlled. Objective Vital signs: Temperature 98.4 F 09/27/17 10:55 Pulse Rate 101 H 09/27/17 10:55 Respiratory Rate 20 09/27/17 10:55 Blood Pressure 118/67 09/27/17 10:55 Pulse Oximetry 96 09/27/17 10:55 Height/Weight/BMI: Height 4 ft 11 in Weight 156 lb 4.924 oz Body Mass Index 31.1 Comments: Patient sitting in her wheelchair in day room, listening to music; no acute distress and actively participating in floor activities. - Constitutional Present: no acute distress, well nourished, well developed, cooperative - Routine HEENT Exam Head: Present: normocephalic, atraumatic Eye: Present: PERRL. Absent: conjunctival icterus ENT: Present: mucous membranes moist - Routine Respiratory Exam Present: CTA bilaterally. Absent: rales, respiratory distress, rhonchi, stridor , wheezes, crackles - Routine Cardiovascular Exam Present: RRR, S1, S2 - Routine Abdominal Exam Present: soft, normoactive bowel sounds, non distended, non tender Comments: ostomy present. - Routine Extremities Exam Present: edema (2+ bilaterally), pulses intact Comments: evon bandage noted to left lower extremity secondary to treatment for chronic wounds; right lower extremity has PVD skin changes noted without acute infection and 2+ edema. - Routine Back/Spine/Pelvis Exam Back/Spine: Present: full ROM. Absent: vertebral tenderness - Routine Musculoskeletal Exam Musculoskeletal: Present: moving extremities well - Routine Skin Exam Present: dry, warm. Absent: jaundice Comments: afebrile - Routine Neurological Exam Present: alert, moving all extremities, hearing grossly intact, normal speech. 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 Current visit: Yes Status: Acute (2) Lung mass Current visit: Yes Status: Acute Assessment and Plan: Assessment Dementia Behavioral changes with hallucinations (visual, auditory) Lung mass, concern for malignancy with CT chest demonstrating > 5 cm spiculated mass --> per radiology, bronchoscopy likely the most appropriate avenue for biopsy --> Discussed with her niece and DPOA today (May [place], ) who agrees that she would want further investigation HTN DM2 Constipation H/O Abnormal vaginal bleeding Recurrent UTI Colostomy Chronic vascular insufficiency wounds Complicated UTI, urine culture pending with NGTD from 09/21 Plan - 09/27/17 (Kole): Overall, Carina appears to be doing better and is currently medically stable. She continues to have delusions, often having full conversations with her , boyfriend and/or 's girlfriend. Continue to provide safe and supportive environment, encouraging the patient to participate in floor activities. Continue psychiatric care per Dr. Childers and team. Patient has been seen and evaluated by Dr. Forrester regarding her lung mass. Plan to conduct work up with bronchoscopy as outpatient. Breathing remains stable. In light of her persistent delusions and suspected lung cancer, CT head was obtained and was unremarkable without evidence of mets. UA culture revealed multi-drug resistant coag negative staph and strep viridans. She remains on Keflex with treatment to be completed on 09/29. Sensitivities to cephalosporins were not assessed. She remains afebrile and symptomatic. Will continue keflex and reassess following treatment completion. Continue to monitor closely for signs of worsening/recurrent infection. History of diet controlled diabetes. Blood sugars have been controlled. Diet changed from regular to carb consistent with 2000 calories. Continue to monitor closely. Continue wound care treatment for ulceration on left lateral malleolus. Will recheck labs on 09/30 to monitor blood counts, electrolytes and renal function. Resuscitation Status: Full Code - Time spent with patient Time with patient PN: 35 minutes - Physician Narriative Physician: other (Dr. Rimma Salinas) Hospital Course Summary Disclaimer: The visit summary below is not to be considered part of the above Progress Note. Hospital Course: 09/21/17 10:23 Some paranoia but not distressing to the pt. Continue current care 09/21/17 12:03 09/21/17 Admit to [facility] under the care of the psychiatry team. Continue safe/supportive environment. Possible recurrent UTI- await cx. (may need to R/O fistula given hx of intra- abdominal infection) Lung mass needs to be evaluated- order CT w/o contrast for now given age. CT head as well given concern for malignancy. (Don't think she would cooperate for MRI) Add laxatives due to constipation. Monitor HTN and DM2- daily accu checks. No home meds are recorded for those problems. Consult wound clinic to help with chronic wound management. D/W RN today. Full code-may need to discuss code status depending on findings. 09/21/17 12:04 Assessment: Dementia Behavioral changes with hallucinations Lung mass, concern for malignancy HTN DM2 Constipation H/O Abnormal vaginal bleeding Recurrent UTI Colostomy Chronic vascular insufficiency wounds. 09/22/17 11:07 Psych Irritable and agitated today. Continue current care 09/22/17 15:41 [place] Consult pulmonology for further evaluation and possible bronchoscopy/biopsy this week to evaluate lung mass Start keflex 500 mg po BID empirically pending urine culture results given history of recurrent UTI, UA nitrite + and bacteriuria Continue safe/supportive environment Continue laxatives for constipation Monitor HTN and DM2- daily accu checks. No home meds are recorded for those problems and stable currently Consult wound clinic to help with chronic wound management (eval pending) 09/23/17 Plan Consulted pulmonology for further evaluation of probable malignant lung mass. Recommended by CM to complete treatment course of [facility]. Then will plan for outpatient workup and Bronchoscopy with Dr Forrester. Could consider obtaining CT brain with contrast to rule out mets. Will discuss with DPOA. Continues on Keflex for Pyuria- Culture revels Coag negative Staph. Awaiting sensitivity Monitor HTN and DM2- Diet control. Overall stable Attempted to nick DPOA May Powers (niece), to discuss plan of care. Will call later in the day 09/23/17 Psych: Discussed care with hospitalist and pulmonology - recommended biopsy of lung on outpatient basis after discharge from this unit. Currently on Keflex for UTI, still hallucinating frequently though behaviors have been minimal. Will increase HS Seroquel to 75mg PO q HS. 09/24/17 Psych: Discussed care with hospitalist - they are planning to order CT without contrast to r/o any brain mets from lung mass. Will continue current care with focus on adherence to medications, especially antibiotic and antipyschotic medication, and monitor behavior/response. 09/25/17 Psych: Will order Haldol 0.5mg IM to be given if patient refuses scheduled antipsychotic; monitor mood, behavior and response to treatment. 09/26/17 Psych: Will monitor behavior with ensured compliance with antipsychotics (with IM option available if PO refused). Will consider switching to alternative antipsychotic such as Risperdal or increasing dose if behaviors continue. Keflex to be taken through 09/29 per hospitalist. 09/27/17 Psych: Will increase Zoloft to 75mg (and possibly 100mg in future) to target continued anxiety. AVH have been non-distressing in nature and patient has been much more cooperative, not aggressive with staff. Plan - 09/27/17 (Mirakian): Overall, Carina appears to be doing better and is currently medically stable. She continues to have delusions, often having full conversations with her , boyfriend and/or 's girlfriend. Continue to provide safe and supportive environment, encouraging the patient to participate in floor activities. Continue psychiatric care per Dr. Childers and team. Patient has been seen and evaluated by Dr. Forrester regarding her lung mass. Plan to conduct work up with bronchoscopy as outpatient. Breathing remains stable. In light of her persistent delusions and suspected lung cancer, CT head was obtained and was unremarkable without evidence of mets. UA culture revealed multi-drug resistant coag negative staph and strep viridans. She remains on Keflex with treatment to be completed on 09/29. Sensitivities to cephalosporins were not assessed. She remains afebrile and symptomatic. Will continue keflex and reassess following treatment completion. Continue to monitor closely for signs of worsening/recurrent infection. History of diet controlled diabetes. Blood sugars have been controlled. Diet changed from regular to carb consistent with 2000 calories. Continue to monitor closely. Continue wound care treatment for ulceration on left lateral malleolus. Will recheck labs on 09/30 to monitor blood counts, electrolytes and renal function.
[2017-09-27] MEDS: DONEPEZIL 10 MG TABLET PO SCH (20:00)
[2017-09-28] MEDS: QUETIAPINE 50 MG TABLET PO SCH ×3 (09:21→23:09)
[2017-09-28] MEDS: MEMANTINE 5 MG TABLET PO SCH ×3 (09:21→23:09)
[2017-09-28] MEDS: CYANOCOBALAMIN (B-12) 500mcg TABLET PO SCH (09:21)
[2017-09-28] MEDS: SERTRALINE 50 MG TABLET PO SCH (09:22)
[2017-09-28] MEDS: SENNA + DOCUSATE TABLET PO SCH ×3 (09:22→23:09)
[2017-09-28] MEDS ORDERED: QUETIAPINE 50 MG TABLET PO ONE (16:09)
--- NOTE | 2017-09-28 17:05 | Neuropsych Progress Note ---
[facility] Subjective Date: 09/29/17 - Sujective/Severity of Illness Medications: Acetaminophen (Tylenol) 500 mg PO Q5H PRN PRN Reason: Discomfort Cephalexin HCl (Keflex) 500 mg PO Q12HR [facility] Stop: 09/29/17 23:59 Last Admin: 09/28/17 09:21 Dose: 500 mg Cholecalciferol (Vit. D-3) 1,000 unit PO DAILY [facility] Last Admin: 09/28/17 09:21 Dose: 1,000 unit Cyanocobalamin (Vit. B-12) 1,000 mcg PO DAILY [facility] Last Admin: 09/28/17 09:21 Dose: 1,000 mcg Donepezil HCl (Aricept) 10 mg PO HS [facility] Last Admin: 09/27/17 20:00 Dose: 10 mg Haloperidol (Haldol) 0.5 mg PO Q6H PRN PRN Reason: Extreme agitation Last Admin: 09/23/17 20:52 Dose: 0.5 mg Haloperidol Decanoate (Haldol Liquid) 0.5 mg PO Q6H PRN Last Admin: 09/25/17 15:19 Dose: 0.5 mg Haloperidol Lactate (Haldol) 0.5 mg IM BID PRN PRN Reason: See comments below Lorazepam (Ativan Inj) 0.5 mg IM Q6H PRN PRN Reason: Extreme agitation Last Admin: 09/24/17 20:45 Dose: 0.5 mg Lorazepam (Ativan) 0.5 mg PO Q6H PRN PRN Reason: Extreme agitation Last Admin: 09/21/17 09:21 Dose: 0.5 mg Lorazepam (Ativan Intensol) 0.5 mg PO Q6H PRN Last Admin: 09/25/17 15:19 Dose: 0.5 mg Magnesium Hydroxide (Mom) 30 ml PO DAILY PRN PRN Reason: Constipation /Stool softening Memantine (Namenda) 5 mg PO BID [facility] Last Admin: 09/28/17 09:21 Dose: 5 mg Quetiapine Fumarate (Seroquel) 50 mg PO DAILY [facility] Last Admin: 09/28/17 09:21 Dose: 50 mg Quetiapine Fumarate (Seroquel) 75 mg PO HS [facility] Last Admin: 09/27/17 20:00 Dose: 75 mg Quetiapine Fumarate (Seroquel) 50 mg PO 1500 RADHA Quetiapine Fumarate (Seroquel) 50 mg PO NOW ONE Stop: 09/28/17 16:10 Senna/Docusate Sodium (Senna Plus Tablet) 1 tab PO BID [facility] Last Admin: 09/28/17 09:22 Dose: 1 tab Sertraline HCl (Zoloft) 75 mg PO DAILY [facility] Last Admin: 09/28/17 09:22 Dose: 75 mg Subjective: Patient seen and chart reviewed. Case discussed with treatment team. Patient is sitting in the dayroom and reports her mood is "okay" and says she is just sitting there talking to herself half the time. She then makes some illogical/disorganized statements about her father being able to hear her in [place] and then states that he is actually on the phone, etc. Patient denies any SI or HI. Patient has denied any adverse side effects related to psychotropic medications. Nursing staff report patient is often euthymic but then had some mild agitation overnight though it was not physical aggression. Patient slept 9 hours overnight. VSS. Patient is eating well. Psychotropic PRNs required in the past 24 hours: None. Lung mass was found and hospitalist has been determined it can be worked up on an outpatient basis; will need biopsy after discharge. CT of head negative for metastases. Start Time: :20 Stop Time: 09:40 Mental Status Exam Vitals: Last Vital Signs Temp 98.3 F 09/28/17 08:00 Pulse 79 09/28/17 08:00 Resp 20 09/28/17 08:00 BP 117/58 09/28/17 08:00 Pulse Ox 99 09/28/17 08:00 Height: 1.5 m Weight: 69.5 kg - Mental Status Exam Muscle Strength/Tone: Weak Dressing: Casual Grooming: Fair Attitude: Cooperative Motor Activity: Retardation Eye Contact: Fair Speech: Slowed Volume: Soft Rhythm: Mumbled Orientation: Disoriented to time, Disoriented to place, Disoriented to situation , Oriented to person Mood: Euthymic (affect calm during interview, can have episodes of agitation on unit) Rate of Thoughts: Delayed Thought Organization: [place] Associations: Loose-associations Abstract Reasoning: Poor abstract reasoning Thought Content: Delusions Perception/Psychotic: Psychotic Current Hallucinations: Visual, Auditory Language: Naming Impaired Fund of Knowledge: Poor fund of knowledge Memory: Poor-immediate, Poor-recent Suicidal Ideation: Denies Homicidal Ideation: Denies Insight: Impaired Judgement: Impaired Impulse Control: Other (Limited) - Laboratory Result Diagrams: 09/28/17 07:05 09/28/17 07:05 Laboratory Results - last 24 hr 09/28/17 09/28/17 09/28/17 05:55 07:05 07:05 WBC 5.7 RBC 4.21 Hgb 11.6 L Hct 38.3 MCV 91.0 MCH 27.6 MCHC 30.3 L RDW Std Deviation 48.1 Plt Count 194 MPV 11.2 Immature Gran % (Auto) 0.4 Neut % (Auto) 69.2 H Lymph % (Auto) 16.0 L [place] % (Auto) 8.6 Eos % (Auto) 5.4 H Baso % (Auto) 0.4 Neut # (Auto) 3.9 Lymph # (Auto) 0.9 L [place] # (Auto) 0.5 Eos # (Auto) 0.3 Baso # (Auto) 0.0 Abs Immat Gran (auto) 0.02 Turbidity < 20 Sodium 143 Potassium 4.2 Chloride 110 H Carbon Dioxide 23 Anion Gap 10 BUN 23.0 H Creatinine 0.9 GFR Calculation 60 BUN/Creatinine Ratio 26 Glucose 91 Glucometer 90 Calculated Osmolality 279 Calcium 8.4 Icterus Index < 2 Specimen Hemolysis < 15 Assessment and Plan (1) 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 Current visit: Yes Status: Acute (2) Lung mass Current visit: Yes Status: Acute (3) Hypertension Current visit: Yes Status: Acute (4) Type 2 diabetes mellitus Current visit: Yes Status: Acute (5) UTI (urinary tract infection) Current visit: Yes Status: Acute Hospital Course Summary Disclaimer: The visit summary below is not to be considered part of the above Progress Note. Hospital Course: 09/21/17 10:23 Some paranoia but not distressing to the pt. Continue current care 09/21/17 12:03 09/21/17 Admit to [facility] under the care of the psychiatry team. Continue safe/supportive environment. Possible recurrent UTI- await cx. (may need to R/O fistula given hx of intra- abdominal infection) Lung mass needs to be evaluated- order CT w/o contrast for now given age. CT head as well given concern for malignancy. (Don't think she would cooperate for MRI) Add laxatives due to constipation. Monitor HTN and DM2- daily accu checks. No home meds are recorded for those problems. Consult wound clinic to help with chronic wound management. D/W RN today. Full code-may need to discuss code status depending on findings. 09/21/17 12:04 Assessment: Dementia Behavioral changes with hallucinations Lung mass, concern for malignancy HTN DM2 Constipation H/O Abnormal vaginal bleeding Recurrent UTI Colostomy Chronic vascular insufficiency wounds. 09/22/17 11:07 Psych Irritable and agitated today. Continue current care 09/22/17 15:41 [place] Consult pulmonology for further evaluation and possible bronchoscopy/biopsy this week to evaluate lung mass Start keflex 500 mg po BID empirically pending urine culture results given history of recurrent UTI, UA nitrite + and bacteriuria Continue safe/supportive environment Continue laxatives for constipation Monitor HTN and DM2- daily accu checks. No home meds are recorded for those problems and stable currently Consult wound clinic to help with chronic wound management (eval pending) 09/23/17 Plan Consulted pulmonology for further evaluation of probable malignant lung mass. Recommended by CM to complete treatment course of [facility]. Then will plan for outpatient workup and Bronchoscopy with Dr Forrester. Could consider obtaining CT brain with contrast to rule out mets. Will discuss with DPOA. Continues on Keflex for Pyuria- Culture revels Coag negative Staph. Awaiting sensitivity Monitor HTN and DM2- Diet control. Overall stable Attempted to nick DPOA May Powers (niece), to discuss plan of care. Will call later in the day 09/23/17 Psych: Discussed care with hospitalist and pulmonology - recommended biopsy of lung on outpatient basis after discharge from this unit. Currently on Keflex for UTI, still hallucinating frequently though behaviors have been minimal. Will increase HS Seroquel to 75mg PO q HS. 09/24/17 Psych: Discussed care with hospitalist - they are planning to order CT without contrast to r/o any brain mets from lung mass. Will continue current care with focus on adherence to medications, especially antibiotic and antipyschotic medication, and monitor behavior/response. 09/25/17 Psych: Will order Haldol 0.5mg IM to be given if patient refuses scheduled antipsychotic; monitor mood, behavior and response to treatment. 09/26/17 Psych: Will monitor behavior with ensured compliance with antipsychotics (with IM option available if PO refused). Will consider switching to alternative antipsychotic such as Risperdal or increasing dose if behaviors continue. Keflex to be taken through 09/29 per hospitalist. 09/27/17 Psych: Will increase Zoloft to 75mg (and possibly 100mg in future) to target continued anxiety. AVH have been non-distressing in nature and patient has been much more cooperative, not aggressive with staff. Plan - 09/27/17 (Mirakian): Overall, Carina appears to be doing better and is currently medically stable. She continues to have delusions, often having full conversations with her , boyfriend and/or 's girlfriend. Continue to provide safe and supportive environment, encouraging the patient to participate in floor activities. Continue psychiatric care per Dr. Childers and team. Patient has been seen and evaluated by Dr. Forrester regarding her lung mass. Plan to conduct work up with bronchoscopy as outpatient. Breathing remains stable. In light of her persistent delusions and suspected lung cancer, CT head was obtained and was unremarkable without evidence of mets. UA culture revealed multi-drug resistant coag negative staph and strep viridans. She remains on Keflex with treatment to be completed on 09/29. Sensitivities to cephalosporins were not assessed. She remains afebrile and symptomatic. Will continue keflex and reassess following treatment completion. Continue to monitor closely for signs of worsening/recurrent infection. History of diet controlled diabetes. Blood sugars have been controlled. Diet changed from regular to carb consistent with 2000 calories. Continue to monitor closely. Continue wound care treatment for ulceration on left lateral malleolus. Will recheck labs on 09/30 to monitor blood counts, electrolytes and renal function. 09/28/17 Psych: Will add additional Seroquel dose in afternoon (50mg PO daily at 1500); monitor mood, behavior and response to treatment.
[2017-09-28] MEDS: DONEPEZIL 10 MG TABLET PO SCH ×2 (19:55→23:08)
[2017-09-29] MEDS: SERTRALINE 50 MG TABLET PO SCH (11:06)
[2017-09-29] MEDS: MEMANTINE 5 MG TABLET PO SCH ×2 (11:06→20:19)
[2017-09-29] MEDS: CYANOCOBALAMIN (B-12) 500mcg TABLET PO SCH (11:06)
[2017-09-29] MEDS: SENNA + DOCUSATE TABLET PO SCH ×2 (11:06→20:19)
[2017-09-29] MEDS: QUETIAPINE 50 MG TABLET PO SCH ×3 (11:08→20:23)
--- NOTE | 2017-09-29 15:50 | Neuropsych Progress Note ---
[facility] Subjective Date: 09/29/17 - Sujective/Severity of Illness Medications: Acetaminophen (Tylenol) 500 mg PO Q5H PRN PRN Reason: Discomfort Cephalexin HCl (Keflex) 500 mg PO Q12HR [facility] Stop: 09/29/17 23:59 Last Admin: 09/29/17 11:05 Dose: 500 mg Cholecalciferol (Vit. D-3) 1,000 unit PO DAILY [facility] Last Admin: 09/29/17 11:09 Dose: 1,000 unit Cyanocobalamin (Vit. B-12) 1,000 mcg PO DAILY [facility] Last Admin: 09/29/17 11:06 Dose: 1,000 mcg Donepezil HCl (Aricept) 10 mg PO HS [facility] Last Admin: 09/28/17 23:08 Dose: Not Given Haloperidol (Haldol) 0.5 mg PO Q6H PRN PRN Reason: Extreme agitation Last Admin: 09/23/17 20:52 Dose: 0.5 mg Haloperidol Decanoate (Haldol Liquid) 0.5 mg PO Q6H PRN Last Admin: 09/25/17 15:19 Dose: 0.5 mg Haloperidol Lactate (Haldol) 0.5 mg IM BID PRN PRN Reason: See comments below Last Admin: 09/29/17 12:49 Dose: 0.5 mg Lorazepam (Ativan Inj) 0.5 mg IM Q6H PRN PRN Reason: Extreme agitation Last Admin: 09/24/17 20:45 Dose: 0.5 mg Lorazepam (Ativan) 0.5 mg PO Q6H PRN PRN Reason: Extreme agitation Last Admin: 09/21/17 09:21 Dose: 0.5 mg Lorazepam (Ativan Intensol) 0.5 mg PO Q6H PRN Last Admin: 09/25/17 15:19 Dose: 0.5 mg Magnesium Hydroxide (Mom) 30 ml PO DAILY PRN PRN Reason: Constipation /Stool softening Memantine (Namenda) 5 mg PO BID [facility] Last Admin: 09/29/17 11:06 Dose: 5 mg Quetiapine Fumarate (Seroquel) 50 mg PO DAILY [facility] Last Admin: 09/29/17 11:08 Dose: 50 mg Quetiapine Fumarate (Seroquel) 75 mg PO HS [facility] Last Admin: 09/28/17 23:09 Dose: Not Given Quetiapine Fumarate (Seroquel) 50 mg PO 1500 [facility] Last Admin: 09/29/17 15:26 Dose: 50 mg Senna/Docusate Sodium (Senna Plus Tablet) 1 tab PO BID [facility] Last Admin: 09/29/17 11:06 Dose: 1 tab Sertraline HCl (Zoloft) 75 mg PO DAILY [facility] Last Admin: 09/29/17 11:06 Dose: 75 mg Subjective: Patient seen and chart reviewed. Case discussed with treatment team. Patient is sitting in the dayroom and reports her mood is "happy" and laughs, somewhat inappropriately. Patient denies feeling anxiety, SI or HI. She has almost continuous AVH and spends most of her day conversing with them. Nursing staff report patient is often euthymic but became resistive with cares and has episodes of paranoia/anxiety, mostly in the afternoon where she is concerned about various things like a fire or bank robbery. Patient slept 7+ hours overnight. VSS. Patient is eating well. Psychotropic PRNs required in the past 24 hours: None. Lung mass was found and hospitalist has been determined it can be worked up on an outpatient basis; will need biopsy after discharge. CT of head negative for metastases. Start Time: 09:20 Stop Time: 09:40 Mental Status Exam Vitals: Last Vital Signs Temp 96.8 F 09/29/17 11:54 Pulse 90 09/29/17 11:54 Resp 18 09/29/17 11:54 BP 108/61 09/29/17 11:54 Pulse Ox 97 09/29/17 11:54 Height: 1.5 m Weight: 69.5 kg - Mental Status Exam Muscle Strength/Tone: Weak Dressing: Casual Grooming: Fair Attitude: Cooperative Motor Activity: Retardation Eye Contact: Fair Speech: Slowed Volume: Soft Rhythm: Mumbled Orientation: Disoriented to time, Disoriented to place, Disoriented to situation , Oriented to person Mood: Euthymic (affect calm during interview, can have episodes of agitation on unit) Rate of Thoughts: Delayed Thought Organization: [place] Associations: Loose-associations Abstract Reasoning: Poor abstract reasoning Thought Content: Delusions, Paranoia Perception/Psychotic: Psychotic Current Hallucinations: Visual, Auditory Language: Naming Impaired Fund of Knowledge: Poor fund of knowledge Memory: Poor-immediate, Poor-recent Suicidal Ideation: Denies Homicidal Ideation: Denies Insight: Impaired Judgement: Impaired Impulse Control: Other (Limited) - Laboratory Result Diagrams: 09/28/17 07:05 09/28/17 07:05 Laboratory Results - last 24 hr 09/29/17 05:44 Glucometer 102 Assessment and Plan (1) 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 Current visit: Yes Status: Acute (2) Lung mass Current visit: Yes Status: Acute (3) Hypertension Current visit: Yes Status: Acute (4) Type 2 diabetes mellitus Current visit: Yes Status: Acute (5) UTI (urinary tract infection) Current visit: Yes Status: Acute Hospital Course Summary Disclaimer: The visit summary below is not to be considered part of the above Progress Note. Hospital Course: 09/21/17 10:23 Some paranoia but not distressing to the pt. Continue current care 09/21/17 12:03 09/21/17 Admit to [facility] under the care of the psychiatry team. Continue safe/supportive environment. Possible recurrent UTI- await cx. (may need to R/O fistula given hx of intra- abdominal infection) Lung mass needs to be evaluated- order CT w/o contrast for now given age. CT head as well given concern for malignancy. (Don't think she would cooperate for MRI) Add laxatives due to constipation. Monitor HTN and DM2- daily accu checks. No home meds are recorded for those problems. Consult wound clinic to help with chronic wound management. D/W RN today. Full code-may need to discuss code status depending on findings. 09/21/17 12:04 Assessment: Dementia Behavioral changes with hallucinations Lung mass, concern for malignancy HTN DM2 Constipation H/O Abnormal vaginal bleeding Recurrent UTI Colostomy Chronic vascular insufficiency wounds. 09/22/17 11:07 Psych Irritable and agitated today. Continue current care 09/22/17 15:41 [place] Consult pulmonology for further evaluation and possible bronchoscopy/biopsy this week to evaluate lung mass Start keflex 500 mg po BID empirically pending urine culture results given history of recurrent UTI, UA nitrite + and bacteriuria Continue safe/supportive environment Continue laxatives for constipation Monitor HTN and DM2- daily accu checks. No home meds are recorded for those problems and stable currently Consult wound clinic to help with chronic wound management (eval pending) 09/23/17 Plan Consulted pulmonology for further evaluation of probable malignant lung mass. Recommended by CM to complete treatment course of [facility]. Then will plan for outpatient workup and Bronchoscopy with Dr Forrester. Could consider obtaining CT brain with contrast to rule out mets. Will discuss with DPOA. Continues on Keflex for Pyuria- Culture revels Coag negative Staph. Awaiting sensitivity Monitor HTN and DM2- Diet control. Overall stable Attempted to nick DPOA May Powers (niece), to discuss plan of care. Will call later in the day 09/23/17 Psych: Discussed care with hospitalist and pulmonology - recommended biopsy of lung on outpatient basis after discharge from this unit. Currently on Keflex for UTI, still hallucinating frequently though behaviors have been minimal. Will increase HS Seroquel to 75mg PO q 09/24/17 Psych: Discussed care with hospitalist - they are planning to order CT without contrast to r/o any brain mets from lung mass. Will continue current care with focus on adherence to medications, especially antibiotic and antipyschotic medication, and monitor behavior/response. 09/25/17 Psych: Will order Haldol 0.5mg IM to be given if patient refuses scheduled antipsychotic; monitor mood, behavior and response to treatment. 09/26/17 Psych: Will monitor behavior with ensured compliance with antipsychotics (with IM option available if PO refused). Will consider switching to alternative antipsychotic such as Risperdal or increasing dose if behaviors continue. Keflex to be taken through 09/29 per hospitalist. 09/27/17 Psych: Will increase Zoloft to 75mg (and possibly 100mg in future) to target continued anxiety. AVH have been non-distressing in nature and patient has been much more cooperative, not aggressive with staff. Plan - 09/27/17 (Mirakian): Overall, Carina appears to be doing better and is currently medically stable. She continues to have delusions, often having full conversations with her , boyfriend and/or 's girlfriend. Continue to provide safe and supportive environment, encouraging the patient to participate in floor activities. Continue psychiatric care per Dr. Childers and team. Patient has been seen and evaluated by Dr. Forrester regarding her lung mass. Plan to conduct work up with bronchoscopy as outpatient. Breathing remains stable. In light of her persistent delusions and suspected lung cancer, CT head was obtained and was unremarkable without evidence of mets. UA culture revealed multi-drug resistant coag negative staph and strep viridans. She remains on Keflex with treatment to be completed on 09/29. Sensitivities to cephalosporins were not assessed. She remains afebrile and symptomatic. Will continue keflex and reassess following treatment completion. Continue to monitor closely for signs of worsening/recurrent infection. History of diet controlled diabetes. Blood sugars have been controlled. Diet changed from regular to carb consistent with 2000 calories. Continue to monitor closely. Continue wound care treatment for ulceration on left lateral malleolus. Will recheck labs on 09/30 to monitor blood counts, electrolytes and renal function. 09/28/17 Psych: Will add additional Seroquel dose in afternoon (50mg PO daily at 1500); monitor mood, behavior and response to treatment. 09/29/17 Psych: Continue to monitor behavior today after increase in antipsychotic - will determine tomorrow whether Seroquel is effective or we should switch to Risperdal; must also consider whether LBD is some component of this given alfonzo and continuous hallucinations. In that case, a less potent antipsychotic would be preferable.
[2017-09-29] MEDS: DONEPEZIL 10 MG TABLET PO SCH (20:19)
[2017-09-30] MEDS: CYANOCOBALAMIN (B-12) 500mcg TABLET PO SCH (09:57)
[2017-09-30] MEDS: SENNA + DOCUSATE TABLET PO SCH ×2 (09:58→20:52)
[2017-09-30] MEDS: SERTRALINE 50 MG TABLET PO SCH (09:58)
[2017-09-30] MEDS: MEMANTINE 5 MG TABLET PO SCH ×2 (09:58→20:52)
[2017-09-30] MEDS: QUETIAPINE 50 MG TABLET PO SCH ×4 (09:58→17:18)
--- NOTE | 2017-09-30 15:27 | Neuropsych Progress Note ---
[facility] Subjective Date: 09/30/17 - Sujective/Severity of Illness Medications: Acetaminophen (Tylenol) 500 mg PO Q5H PRN PRN Reason: Discomfort Cholecalciferol (Vit. D-3) 1,000 unit PO DAILY [facility] Last Admin: 09/30/17 09:57 Dose: 1,000 unit Cyanocobalamin (Vit. B-12) 1,000 mcg PO DAILY [facility] Last Admin: 09/30/17 09:57 Dose: 1,000 mcg Donepezil HCl (Aricept) 10 mg PO HS [facility] Last Admin: 09/29/17 20:19 Dose: 10 mg Haloperidol (Haldol) 0.5 mg PO Q6H PRN PRN Reason: Extreme agitation Last Admin: 09/23/17 20:52 Dose: 0.5 mg Haloperidol Decanoate (Haldol Liquid) 0.5 mg PO Q6H PRN Last Admin: 09/25/17 15:19 Dose: 0.5 mg Haloperidol Lactate (Haldol) 0.5 mg IM BID PRN PRN Reason: See comments below Last Admin: 09/29/17 12:49 Dose: 0.5 mg Lorazepam (Ativan Inj) 0.5 mg IM Q6H PRN PRN Reason: Extreme agitation Last Admin: 09/24/17 20:45 Dose: 0.5 mg Lorazepam (Ativan) 0.5 mg PO Q6H PRN PRN Reason: Extreme agitation Last Admin: 09/21/17 09:21 Dose: 0.5 mg Lorazepam (Ativan Intensol) 0.5 mg PO Q6H PRN Last Admin: 09/25/17 15:19 Dose: 0.5 mg Magnesium Hydroxide (Mom) 30 ml PO DAILY PRN PRN Reason: Constipation /Stool softening Memantine (Namenda) 5 mg PO BID [facility] Last Admin: 09/30/17 09:58 Dose: 5 mg Quetiapine Fumarate (Seroquel) 50 mg PO DAILY [facility] Last Admin: 09/30/17 09:58 Dose: 50 mg Quetiapine Fumarate (Seroquel) 75 mg PO HS [facility] Last Admin: 09/29/17 20:23 Dose: 75 mg Quetiapine Fumarate (Seroquel) 50 mg PO 1500 [facility] Last Admin: 09/30/17 13:44 Dose: 50 mg Senna/Docusate Sodium (Senna Plus Tablet) 1 tab PO BID [facility] Last Admin: 09/30/17 09:58 Dose: 1 tab Sertraline HCl (Zoloft) 75 mg PO DAILY [facility] Last Admin: 09/30/17 09:58 Dose: 75 mg Subjective: Patient seen and chart reviewed. Case discussed with treatment team. Patient is sitting in the dayroom and reports her mood is "happy" and appears euthymic. Patient denies feeling anxiety, SI or HI. She has almost continuous AVH and spends most of her day conversing with them. Nursing staff report patient is often euthymic but has episodes of paranoia/ anxiety, mostly in the afternoon. She was cooperative with cares last night. Patient slept 8.5 hours overnight. VSS. Patient is eating well. Psychotropic PRNs required in the past 24 hours: Haldol 0.5mg IM at 1249 yesterday. Lung mass was found and hospitalist has been determined it can be worked up on an outpatient basis; will need biopsy after discharge. CT of head negative for metastases. Start Time: 12:00 Stop Time: 12:20 Mental Status Exam Vitals: Last Vital Signs Temp 98.2 F 09/30/17 08:00 Pulse 89 09/30/17 08:00 Resp 18 09/30/17 08:00 BP 124/68 09/30/17 08:00 Pulse Ox 98 09/30/17 08:00 Height: 1.5 m Weight: 69.5 kg - Mental Status Exam Muscle Strength/Tone: Weak Dressing: Casual Grooming: Fair Attitude: Cooperative Motor Activity: Retardation Eye Contact: Fair Speech: Slowed Volume: Soft Rhythm: Mumbled Orientation: Disoriented to time, Disoriented to place, Disoriented to situation , Oriented to person Mood: Euthymic (affect calm during interview, can have episodes of agitation on unit) Rate of Thoughts: Delayed Thought Organization: [place] Associations: Loose-associations Abstract Reasoning: Poor abstract reasoning Thought Content: Delusions Perception/Psychotic: Psychotic Current Hallucinations: Visual, Auditory Language: Naming Impaired Fund of Knowledge: Poor fund of knowledge Memory: Poor-immediate, Poor-recent Suicidal Ideation: Denies Homicidal Ideation: Denies Insight: Impaired Judgement: Impaired Impulse Control: Other (Limited) - Laboratory Result Diagrams: 09/30/17 07:18 09/30/17 07:18 Laboratory Results - last 24 hr 09/30/17 09/30/17 09/30/17 06:01 07:18 07:18 WBC 6.4 RBC 4.19 Hgb 11.7 L Hct 38.3 MCV 91.4 MCH 27.9 MCHC 30.5 L RDW Std Deviation 48.3 Plt Count 204 MPV 11.2 Immature Gran % (Auto) 0.5 Neut % (Auto) 74.5 H Lymph % (Auto) 13.1 L [place] % (Auto) 7.5 Eos % (Auto) 4.2 H Baso % (Auto) 0.2 Neut # (Auto) 4.8 Lymph # (Auto) 0.8 L [place] # (Auto) 0.5 Eos # (Auto) 0.3 Baso # (Auto) 0.0 Abs Immat Gran (auto) 0.03 Turbidity < 20 Sodium 142 Potassium 4.1 Chloride 109 H Carbon Dioxide 24 Anion Gap 9 BUN 26.0 H Creatinine 0.9 GFR Calculation 60 BUN/Creatinine Ratio 29 H Glucose 90 Glucometer 90 Calculated Osmolality 278 Calcium 8.4 Icterus Index < 2 Specimen Hemolysis < 15 Assessment and Plan (1) 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 Current visit: Yes Status: Acute (2) Lung mass Current visit: Yes Status: Acute (3) Hypertension Current visit: Yes Status: Acute (4) Type 2 diabetes mellitus Current visit: Yes Status: Acute (5) UTI (urinary tract infection) Current visit: Yes Status: Acute Hospital Course Summary Disclaimer: The visit summary below is not to be considered part of the above Progress Note. Hospital Course: 09/21/17 10:23 Some paranoia but not distressing to the pt. Continue current care 09/21/17 12:03 09/21/17 Admit to [facility] under the care of the psychiatry team. Continue safe/supportive environment. Possible recurrent UTI- await cx. (may need to R/O fistula given hx of intra- abdominal infection) Lung mass needs to be evaluated- order CT w/o contrast for now given age. CT head as well given concern for malignancy. (Don't think she would cooperate for MRI) Add laxatives due to constipation. Monitor HTN and DM2- daily accu checks. No home meds are recorded for those problems. Consult wound clinic to help with chronic wound management. D/W RN today. Full code-may need to discuss code status depending on findings. 09/21/17 12:04 Assessment: Dementia Behavioral changes with hallucinations Lung mass, concern for malignancy HTN DM2 Constipation H/O Abnormal vaginal bleeding Recurrent UTI Colostomy Chronic vascular insufficiency wounds. 09/22/17 11:07 Psych Irritable and agitated today. Continue current care 09/22/17 15:41 [place] Consult pulmonology for further evaluation and possible bronchoscopy/biopsy this week to evaluate lung mass Start keflex 500 mg po BID empirically pending urine culture results given history of recurrent UTI, UA nitrite + and bacteriuria Continue safe/supportive environment Continue laxatives for constipation Monitor HTN and DM2- daily accu checks. No home meds are recorded for those problems and stable currently Consult wound clinic to help with chronic wound management (eval pending) 09/23/17 Plan Consulted pulmonology for further evaluation of probable malignant lung mass. Recommended by CM to complete treatment course of [facility]. Then will plan for outpatient workup and Bronchoscopy with Dr Forrester. Could consider obtaining CT brain with contrast to rule out mets. Will discuss with DPOA. Continues on Keflex for Pyuria- Culture revels Coag negative Staph. Awaiting sensitivity Monitor HTN and DM2- Diet control. Overall stable Attempted to nick DPOA May Powers (niece), to discuss plan of care. Will call later in the day 09/23/17 Psych: Discussed care with hospitalist and pulmonology - recommended biopsy of lung on outpatient basis after discharge from this unit. Currently on Keflex for UTI, still hallucinating frequently though behaviors have been minimal. Will increase HS Seroquel to 75mg PO. 09/24/17 Psych: Discussed care with hospitalist - they are planning to order CT without contrast to r/o any brain mets from lung mass. Will continue current care with focus on adherence to medications, especially antibiotic and antipyschotic medication, and monitor behavior/response. 09/25/17 Psych: Will order Haldol 0.5mg IM to be given if patient refuses scheduled antipsychotic; monitor mood, behavior and response to treatment. 09/26/17 Psych: Will monitor behavior with ensured compliance with antipsychotics (with IM option available if PO refused). Will consider switching to alternative antipsychotic such as Risperdal or increasing dose if behaviors continue. Keflex to be taken through 09/29 per hospitalist. 09/27/17 Psych: Will increase Zoloft to 75mg (and possibly 100mg in future) to target continued anxiety. AVH have been non-distressing in nature and patient has been much more cooperative, not aggressive with staff. Plan - 09/27/17 ([place]akian): Overall, Carina appears to be doing better and is currently medically stable. She continues to have delusions, often having full conversations with her , boyfriend and/or 's girlfriend. Continue to provide safe and supportive environment, encouraging the patient to participate in floor activities. Continue psychiatric care per Dr. Childers and team. Patient has been seen and evaluated by Dr. Forrester regarding her lung mass. Plan to conduct work up with bronchoscopy as outpatient. Breathing remains stable. In light of her persistent delusions and suspected lung cancer, CT head was obtained and was unremarkable without evidence of mets. UA culture revealed multi-drug resistant coag negative staph and strep viridans. She remains on Keflex with treatment to be completed on 09/29. Sensitivities to cephalosporins were not assessed. She remains afebrile and symptomatic. Will continue keflex and reassess following treatment completion. Continue to monitor closely for signs of worsening/recurrent infection. History of diet controlled diabetes. Blood sugars have been controlled. Diet changed from regular to carb consistent with 2000 calories. Continue to monitor closely. Continue wound care treatment for ulceration on left lateral malleolus. Will recheck labs on 09/30 to monitor blood counts, electrolytes and renal function. 09/28/17 Psych: Will add additional Seroquel dose in afternoon (50mg PO daily at 1500); monitor mood, behavior and response to treatment. 09/29/17 Psych: Continue to monitor behavior today after increase in antipsychotic - will determine tomorrow whether Seroquel is effective or we should switch to Risperdal; must also consider whether LBD is some component of this given alfonzo and continuous hallucinations. In that case, a less potent antipsychotic would be preferable. 09/30/17 Psych: Increase Seroquel to 50mg PO q AM, 75mg PO at noon and 1800. Monitor mood, behavior and response to treatment.
[2017-09-30] MEDS: DONEPEZIL 10 MG TABLET PO SCH (20:52)
--- NOTE | 2017-10-01 09:18 | General Surgery Progress Note ---
Subjective Patient reports: no new complaints, tolerating a regular diet, bowel movement ( in colostomy bag daily), afebrile Narrative: As I enter the room she remains in bed and is talking to someone unseen. She did recognize me as I enter the room and called me by name. When questioned being about her left ankle pain she's denies pain as long as the wound remains dressed. She states it does have pain when people "mess with it." - Vital Signs Last Vital Signs Temp 97.2 F 09/30/17 21:17 Pulse 83 09/30/17 21:17 Resp 16 09/30/17 21:17 BP 117/67 09/30/17 21:17 Pulse Ox 93 09/30/17 21:17 - Laboratory Result Diagrams: 09/30/17 07:18 09/30/17 07:18 - Abnormal Exam Cardiovascular: irregular rhythm (mostly regular but a few moments of pauses and irregular beats auscultated) Skin: Left lateral ankle wound is dry, Iodosorb on the gauze. She does not have the tensor shape compression stocking on. I was able to wash off the remaining Iodosorb with normal saline and dry gauze. Wound bed is dry and covered with white fibrinous tissue. Periwound area dry. Toes misshapen calluses noted medially on great toe metatarsal head Aquasol silver and large Mepilex applied - Normal Exam General: awake, alert, oriented (to person and recognized me.) Respiratory: clear bilaterally, no labored breathing Abdominal: soft, no guarding, non-tender, other (yellowish brown stool in ostomy bag) Psychiatric: other (was talking to an unseen person in the room when I entered.) Assessment and Plan (1) Venous stasis ulcer of ankle Current Visit: Yes Status: Acute Qualifiers: Varicose vein presence: without varicose veins Laterality: left Plan: At this point we'll discontinue the Iodosorb. Changed to Aquasol silver followed by Mepilex to be changed every 5 days. We'll continue to follow her periodically through her hospitalization . Would recommend follow-up in the wound clinic 1-2 weeks after discharge. Hospital Course Summary Disclaimer: The visit summary below is not to be considered part of the above Progress Note. Hospital Course: 09/21/17 10:23 Some paranoia but not distressing to the pt. Continue current care 09/21/17 12:03 09/21/17 Admit to [facility] under the care of the psychiatry team. Continue safe/supportive environment. Possible recurrent UTI- await cx. (may need to R/O fistula given hx of intra- abdominal infection) Lung mass needs to be evaluated- order CT w/o contrast for now given age. CT head as well given concern for malignancy. (Don't think she would cooperate for MRI) Add laxatives due to constipation. Monitor HTN and DM2- daily accu checks. No home meds are recorded for those problems. Consult wound clinic to help with chronic wound management. D/W RN today. Full code-may need to discuss code status depending on findings. 09/21/17 12:04 Assessment: Dementia Behavioral changes with hallucinations Lung mass, concern for malignancy HTN DM2 Constipation H/O Abnormal vaginal bleeding Recurrent UTI Colostomy Chronic vascular insufficiency wounds. 09/22/17 11:07 Psych Irritable and agitated today. Continue current care 09/22/17 15:41 [place] Consult pulmonology for further evaluation and possible bronchoscopy/biopsy this week to evaluate lung mass Start keflex 500 mg po BID empirically pending urine culture results given history of recurrent UTI, UA nitrite + and bacteriuria Continue safe/supportive environment Continue laxatives for constipation Monitor HTN and DM2- daily accu checks. No home meds are recorded for those problems and stable currently Consult wound clinic to help with chronic wound management (eval pending) 09/23/17 Plan Consulted pulmonology for further evaluation of probable malignant lung mass. Recommended by CM to complete treatment course of [facility]. Then will plan for outpatient workup and Bronchoscopy with Dr Forrester. Could consider obtaining CT brain with contrast to rule out mets. Will discuss with DPOA. Continues on Keflex for Pyuria- Culture revels Coag negative Staph. Awaiting sensitivity Monitor HTN and DM2- Diet control. Overall stable Attempted to nick DPOA May Powers (niece), to discuss plan of care. Will call later in the day 09/23/17 Psych: Discussed care with hospitalist and pulmonology - recommended biopsy of lung on outpatient basis after discharge from this unit. Currently on Keflex for UTI, still hallucinating frequently though behaviors have been minimal. Will increase HS Seroquel to 75mg PO. 09/24/17 Psych: Discussed care with hospitalist - they are planning to order CT without contrast to r/o any brain mets from lung mass. Will continue current care with focus on adherence to medications, especially antibiotic and antipyschotic medication, and monitor behavior/response. 09/25/17 Psych: Will order Haldol 0.5mg IM to be given if patient refuses scheduled antipsychotic; monitor mood, behavior and response to treatment. 09/26/17 Psych: Will monitor behavior with ensured compliance with antipsychotics (with IM option available if PO refused). Will consider switching to alternative antipsychotic such as Risperdal or increasing dose if behaviors continue. Keflex to be taken through 09/29 per hospitalist. 09/27/17 Psych: Will increase Zoloft to 75mg (and possibly 100mg in future) to target continued anxiety. AVH have been non-distressing in nature and patient has been much more cooperative, not aggressive with staff. Plan - 09/27/17 (Mirakian): Overall, Carina appears to be doing better and is currently medically stable. She continues to have delusions, often having full conversations with her , boyfriend and/or 's girlfriend. Continue to provide safe and supportive environment, encouraging the patient to participate in floor activities. Continue psychiatric care per Dr. Childers and team. Patient has been seen and evaluated by Dr. Forrester regarding her lung mass. Plan to conduct work up with bronchoscopy as outpatient. Breathing remains stable. In light of her persistent delusions and suspected lung cancer, CT head was obtained and was unremarkable without evidence of mets. UA culture revealed multi-drug resistant coag negative staph and strep viridans. She remains on Keflex with treatment to be completed on 09/29. Sensitivities to cephalosporins were not assessed. She remains afebrile and symptomatic. Will continue keflex and reassess following treatment completion. Continue to monitor closely for signs of worsening/recurrent infection. History of diet controlled diabetes. Blood sugars have been controlled. Diet changed from regular to carb consistent with 2000 calories. Continue to monitor closely. Continue wound care treatment for ulceration on left lateral malleolus. Will recheck labs on 09/30 to monitor blood counts, electrolytes and renal function. 09/28/17 Psych: Will add additional Seroquel dose in afternoon (50mg PO daily at 1500); monitor mood, behavior and response to treatment. 09/29/17 Psych: Continue to monitor behavior today after increase in antipsychotic - will determine tomorrow whether Seroquel is effective or we should switch to Risperdal; must also consider whether LBD is some component of this given alfonzo and continuous hallucinations. In that case, a less potent antipsychotic would be preferable. 09/30/17 Psych: Increase Seroquel to 50mg PO q AM, 75mg PO at noon and 1800. Monitor mood, behavior and response to treatment.
[2017-10-01] MEDS: MEMANTINE 5 MG TABLET PO SCH ×2 (09:50→20:02)
[2017-10-01] MEDS: CYANOCOBALAMIN (B-12) 500mcg TABLET PO SCH (09:50)
[2017-10-01] MEDS: QUETIAPINE 50 MG TABLET PO SCH ×3 (09:50→17:33)
[2017-10-01] MEDS: SENNA + DOCUSATE TABLET PO SCH ×2 (09:50→20:02)
[2017-10-01] MEDS: SERTRALINE 50 MG TABLET PO SCH (09:51)
--- NOTE | 2017-10-01 13:37 | Neuropsych Progress Note ---
[facility] Subjective Date: 10/01/17 - Sujective/Severity of Illness Medications: Acetaminophen (Tylenol) 500 mg PO Q5H PRN PRN Reason: Discomfort Cholecalciferol (Vit. D-3) 1,000 unit PO DAILY [facility] Last Admin: 10/01/17 09:50 Dose: 1,000 unit Cyanocobalamin (Vit. B-12) 1,000 mcg PO DAILY [facility] Last Admin: 10/01/17 09:50 Dose: 1,000 mcg Donepezil HCl (Aricept) 10 mg PO HS [facility] Last Admin: 09/30/17 20:52 Dose: 10 mg Haloperidol (Haldol) 0.5 mg PO Q6H PRN PRN Reason: Extreme agitation Last Admin: 09/23/17 20:52 Dose: 0.5 mg Haloperidol Decanoate (Haldol Liquid) 0.5 mg PO Q6H PRN Last Admin: 09/25/17 15:19 Dose: 0.5 mg Haloperidol Lactate (Haldol) 0.5 mg IM BID PRN PRN Reason: See comments below Last Admin: 09/29/17 12:49 Dose: 0.5 mg Lorazepam (Ativan Inj) 0.5 mg IM Q6H PRN PRN Reason: Extreme agitation Last Admin: 09/24/17 20:45 Dose: 0.5 mg Lorazepam (Ativan) 0.5 mg PO Q6H PRN PRN Reason: Extreme agitation Last Admin: 09/21/17 09:21 Dose: 0.5 mg Lorazepam (Ativan Intensol) 0.5 mg PO Q6H PRN Last Admin: 09/25/17 15:19 Dose: 0.5 mg Magnesium Hydroxide (Mom) 30 ml PO DAILY PRN PRN Reason: Constipation /Stool softening Memantine (Namenda) 5 mg PO BID [facility] Last Admin: 10/01/17 09:50 Dose: 5 mg Quetiapine Fumarate (Seroquel) 50 mg PO DAILY [facility] Last Admin: 10/01/17 09:50 Dose: 50 mg Quetiapine Fumarate (Seroquel) 75 mg PO [facility] Last Admin: 09/30/17 17:18 Dose: 75 mg Senna/Docusate Sodium (Senna Plus Tablet) 1 tab PO BID [facility] Last Admin: 10/01/17 09:50 Dose: 1 tab Sertraline HCl (Zoloft) 75 mg PO DAILY [facility] Last Admin: 10/01/17 09:51 Dose: 75 mg Subjective: Patient seen and chart reviewed. Case discussed with treatment team. Patient is sitting in the dayroom and reports her mood is "happy" and appears euthymic. Patient denies feeling anxiety, SI or HI. She has almost continuous AVH and spends most of her day conversing with them. She jokes with me throughout interview. Nursing staff report patient is often euthymic but gets more irritable with colostomy cares and verbally insulted staff but did not become aggressive, require PRNs, etc. Patient slept well overnight. VSS. Patient is eating well. Psychotropic PRNs required in the past 24 hours: None. Lung mass was found and hospitalist has been determined it can be worked up on an outpatient basis; will need biopsy after discharge. CT of head negative for metastases. Start Time: 09:20 Stop Time: 09:40 Mental Status Exam Vitals: Last Vital Signs Temp 98.8 F 10/01/17 08:00 Pulse 77 10/01/17 08:00 Resp 20 10/01/17 08:00 BP 104/65 10/01/17 08:00 Pulse Ox 98 10/01/17 08:00 Height: 1.5 m Weight: 69.5 kg - Mental Status Exam Muscle Strength/Tone: Weak Dressing: Casual Grooming: Fair Attitude: Cooperative Motor Activity: Retardation Eye Contact: Fair Speech: Slowed Volume: Soft Rhythm: Mumbled Orientation: Disoriented to time, Disoriented to place, Disoriented to situation , Oriented to person Mood: Euthymic Affect: Bright Rate of Thoughts: Delayed Thought Organization: [place] Associations: Loose-associations Abstract Reasoning: Poor abstract reasoning Thought Content: Delusions (of cheating, likely fixed per family's report) Perception/Psychotic: Psychotic Current Hallucinations: Visual, Auditory Language: Naming Impaired Fund of Knowledge: Poor fund of knowledge Memory: Poor-immediate, Poor-recent Suicidal Ideation: Denies Homicidal Ideation: Denies Insight: Impaired Judgement: Impaired Impulse Control: Fair - Laboratory Result Diagrams: 09/30/17 07:18 09/30/17 07:18 Laboratory Results - last 24 hr 10/01/17 06:45 Glucometer 95 Assessment and Plan (1) 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 Current visit: Yes Status: Acute (2) Lung mass Current visit: Yes Status: Acute (3) Hypertension Current visit: Yes Status: Acute (4) Type 2 diabetes mellitus Current visit: Yes Status: Acute (5) UTI (urinary tract infection) Current visit: Yes Status: Acute Hospital Course Summary Disclaimer: The visit summary below is not to be considered part of the above Progress Note. Hospital Course: 09/21/17 10:23 Some paranoia but not distressing to the pt. Continue current care 09/21/17 12:03 09/21/17 Admit to [facility] under the care of the psychiatry team. Continue safe/supportive environment. Possible recurrent UTI- await cx. (may need to R/O fistula given hx of intra- abdominal infection) Lung mass needs to be evaluated- order CT w/o contrast for now given age. CT head as well given concern for malignancy. (Don't think she would cooperate for MRI) Add laxatives due to constipation. Monitor HTN and DM2- daily accu checks. No home meds are recorded for those problems. Consult wound clinic to help with chronic wound management. D/W RN today. Full code-may need to discuss code status depending on findings. 09/21/17 12:04 Assessment: Dementia Behavioral changes with hallucinations Lung mass, concern for malignancy HTN DM2 Constipation H/O Abnormal vaginal bleeding Recurrent UTI Colostomy Chronic vascular insufficiency wounds. 09/22/17 11:07 Psych Irritable and agitated today. Continue current care 09/22/17 15:41 [place] Consult pulmonology for further evaluation and possible bronchoscopy/biopsy this week to evaluate lung mass Start keflex 500 mg po BID empirically pending urine culture results given history of recurrent UTI, UA nitrite + and bacteriuria Continue safe/supportive environment Continue laxatives for constipation Monitor HTN and DM2- daily accu checks. No home meds are recorded for those problems and stable currently Consult wound clinic to help with chronic wound management (eval pending) 09/23/17 Plan Consulted pulmonology for further evaluation of probable malignant lung mass. Recommended by CM to complete treatment course of [facility]. Then will plan for outpatient workup and Bronchoscopy with Dr Forrester. Could consider obtaining CT brain with contrast to rule out mets. Will discuss with DPOA. Continues on Keflex for Pyuria- Culture revels Coag negative Staph. Awaiting sensitivity Monitor HTN and DM2- Diet control. Overall stable Attempted to nick DPOA [place] (niece), to discuss plan of care. Will call later in the day 09/23/17 Psych: Discussed care with hospitalist and pulmonology - recommended biopsy of lung on outpatient basis after discharge from this unit. Currently on Keflex for UTI, still hallucinating frequently though behaviors have been minimal. Will increase HS Seroquel to 75mg PO. 09/24/17 Psych: Discussed care with hospitalist - they are planning to order CT without contrast to r/o any brain mets from lung mass. Will continue current care with focus on adherence to medications, especially antibiotic and antipyschotic medication, and monitor behavior/response. 09/25/17 Psych: Will order Haldol 0.5mg IM to be given if patient refuses scheduled antipsychotic; monitor mood, behavior and response to treatmen 09/26/17 Psych: Will monitor behavior with ensured compliance with antipsychotics (with IM option available if PO refused). Will consider switching to alternative antipsychotic such as Risperdal or increasing dose if behaviors continue. Keflex to be taken through 09/29 per hospitalist. 09/27/17 Psych: Will increase Zoloft to 75mg (and possibly 100mg in future) to target continued anxiety. AVH have been non-distressing in nature and patient has been much more cooperative, not aggressive with staff. Plan - 09/27/17 (Mirakian): Overall, Carina appears to be doing better and is currently medically stable. She continues to have delusions, often having full conversations with her , boyfriend and/or 's girlfriend. Continue to provide safe and supportive environment, encouraging the patient to participate in floor activities. Continue psychiatric care per Dr. Childers and team. Patient has been seen and evaluated by Dr. Forrester regarding her lung mass. Plan to conduct work up with bronchoscopy as outpatient. Breathing remains stable. In light of her persistent delusions and suspected lung cancer, CT head was obtained and was unremarkable without evidence of mets. UA culture revealed multi-drug resistant coag negative staph and strep viridans. She remains on Keflex with treatment to be completed on 09/29. Sensitivities to cephalosporins were not assessed. She remains afebrile and symptomatic. Will continue keflex and reassess following treatment completion. Continue to monitor closely for signs of worsening/recurrent infection. History of diet controlled diabetes. Blood sugars have been controlled. Diet changed from regular to carb consistent with 2000 calories. Continue to monitor closely. Continue wound care treatment for ulceration on left lateral malleolus. Will recheck labs on 09/30 to monitor blood counts, electrolytes and renal function. 09/28/17 Psych: Will add additional Seroquel dose in afternoon (50mg PO daily at 1500); monitor mood, behavior and response to treatment. 09/29/17 Psych: Continue to monitor behavior today after increase in antipsychotic - will determine tomorrow whether Seroquel is effective or we should switch to Risperdal; must also consider whether LBD is some component of this given alfonzo and continuous hallucinations. In that case, a less potent antipsychotic would be preferable. 09/30/17 Psych: Increase Seroquel to 50mg PO q AM, 75mg PO at noon and 1800. Monitor mood, behavior and response to treatment. 10/01/17 Psych: Patient is doing well other than some mild irritability with insults during colostomy care. Psychotic symptoms have not decreased with Seroquel use - delusions are likely fixed but not distressing so not worth risk of increasing meds further at this point. Plan to network with facility in regards to discharge/return with continued outpatient workup of lung mass.
[2017-10-01] MEDS: DONEPEZIL 10 MG TABLET PO SCH (20:02)
[2017-10-01 22:35] VITALS: TEMP 97.2
[2017-10-02 09:16] VITALS: BP 132/62; PULSE 78; RESP 20; O2SAT 100
[2017-10-02] MEDS: SERTRALINE 50 MG TABLET PO SCH (09:52)
[2017-10-02] MEDS: MEMANTINE 5 MG TABLET PO SCH (09:52)
[2017-10-02] MEDS: QUETIAPINE 50 MG TABLET PO SCH ×2 (09:52→11:19)
[2017-10-02] MEDS: SENNA + DOCUSATE TABLET PO SCH (09:52)
[2017-10-02] MEDS: CYANOCOBALAMIN (B-12) 500mcg TABLET PO SCH (09:52)
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
== END 2017-10-02 11:52 | DRG 57 ==
LOC: ED 13:02 → GEN 14:56
PROVIDERS: ADMIT Psychiatry & Neurology Psychiatry; ATTEND Psychiatry & Neurology Psychiatry